=== PATIENT | male | born 1940 | race Caucasian/White ===

== ENCOUNTER 2017-05-20 09:16 | Inpatient (IN) | payer MEDICARE, MEDICAID ==
[~2017-05-20] VITALS: Ht 170.2 cm; Wt 51.7 kg
[~2017-05-20 09:16] MED LIST: ACETAMINOPHEN325 M1; ADULT LOW DOSE81 MG PO; ALBUTEROL NEB IH; ALBUTEROL2.5 MG/3 M INH; ALDACTONE50 MG PO; APAP500 PO; ASPIRIN81 M2 PO; AUGMENTIN 875875 MG PO; BACLOFEN 10MG T10 M1 PO; BACLOFEN 10MG T10 MG PO; CALCIUM 500 +1 EACH PO; CALCIUM 500 WI1 EAC4 PO; CARAFATE 1 GM TA1 G1 PO; CEFUROXIME500 MG PO; COMBIVENT IH; CONSTULOSE10 GM/152 PO; DUONEB 2.5-0.5 M3 ML INH; FLAGYL500 MG PO; FUROSEMIDE 20 M20 M1 PO; LACTULOSE20 GM/30 M PO; LASIX 40 MG TAB40 M2 PO; LIPITOR10 MG PO; LISINOPRIL5 MG PO; LOMOTIL TABLET1 EACH PO; MIRALAX17 GM PO; MULTIVITAMIN PO; MULTIVITAMINS PO; NEXIUM PO; NEXIUM40 MG PO; NYSTATIN 1100000 U/M SWISH&SPIT; OMEPRAZOLE40 MG PO; PREDNISONE 10 M10 MG PO; PREDNISONE 20 M20 M1 PO; PROTONIX40 M1 PO; SERTRALINE HCL25 M1 PO; SPIRONOLACTONE50 MG PO; TESSALON PERLE100 MG PO; VITAMIN D-3 PO; VITAMIN D1000 UNI1 PO; XIFAXAN550 M1 PO; ZOCOR 10 MG TAB10 MG PO; ZPAK PO
[2017-05-20 09:18] VITALS: BP 142/62
[2017-05-20 10:08] LABS: ABSOLUTE LYMPHOCYTES 0.6 thou/uL (0.8-5.3); ABSOLUTE MONOCYTES 0.4 thou/uL (0.0-1.2); ABSOLUTE NEUTROPHILS 3.2 thou/uL (1.6-8.1); BASOPHILS 0.3 %; EOSINOPHILS 0.8 %; HEMOGLOBIN 9.4 gm/dL (14.0-18.0); LYMPHOCYTES 14.5 %; MCH 31.5 pg (26.0-34.0); MONOCYTES 9.1 %; MPV 9.4 fl. (7.2-11.1); NUCLEATED RBCS 0 /100WBC; POLYS 75.3 %; RDW-CV 15.3 % (10.5-14.5); WBC 4.2 thou/uL (4.0-11.0)
[2017-05-20 10:09] LABS: PLATELET COUNT* 46 thou/uL (150-400)
[2017-05-20 10:16] LABS: INR 1.3; PROTIME 12.3 Seconds (9.20-11.50)
[2017-05-20 10:17] LABS: ANION GAP 7 mmol/L (7-16); BUN 24 mg/dL (7-18); CALCIUM 8.3 mg/dL (8.5-10.1); CHLORIDE 108 mmol/L (98-107); CO2 25 mmol/L (21-32); CREATININE 1.7 mg/dL (0.6-1.3); GLUCOSE 100 mg/dL (70-99); POTASSIUM 4.1 mmol/L (3.5-5.1); SODIUM 140 mmol/L (136-145)
[2017-05-20 10:27] LABS: ALBUMIN 2.5 g/dL (3.4-5.0); ALKALINE PHOSPHATASE 163 U/L (46-116); AMMONIA 83 umol/L (11-32); LIPASE 414 U/L (73-393); NT-PRO BRAIN NAT PEPTIDE 356 pg/mL (<300); SGOT 42 U/L (15-37); SGPT 35 U/L (30-65); TOTAL BILIRUBIN 0.9 mg/dL (<0.1-1.0); TOTAL PROTEIN 7.6 g/dL (6.4-8.2); TROPONIN-I LEVEL <0.06 ng/mL (<0.06)
[2017-05-20 10:39] LABS: PCO2 29.2 mmHg (35.0-45.0); pH 7.454 (7.340-7.450)
[2017-05-20 11:19] LABS: URINE BILIRUBIN NEGATIVE (Negative); URINE BLOOD 3+ (Negative); URINE CLARITY CLEAR; URINE COLOR YELLOW; URINE GLUCOSE-RANDOM NEGATIVE (Negative); URINE KETONES NEGATIVE (Negative); URINE LEUKOCYTES-REFLEX NEGATIVE (Negative); URINE NITRITE-REFLEX NEGATIVE (Negative); URINE PROTEIN 1+ (Negative); URINE SPECIFIC GRAVITY 1.015 (1.005-1.030); URINE UROBILINOGEN 0.2 E.U./dl (0.2-1.0)
[2017-05-20 11:28] LABS: BACTERIA-REFLEX 1-9 Few /HPF (None Seen); CASTS None Seen /LPF (None Seen); CRYSTALS None Seen /LPF (None Seen); MUCUS 0-3 Light strn/LPF (None Seen); SQUAMOUS 0-3 Few /LPF (0-3); URINE WBC-REFLEX 0-5 Rare /HPF (0-5)
[2017-05-20 11:47] LABS: PO2 125.6 mmHg (75.0-100.0)
[2017-05-20 12:19] LABS: INFLUENZA A ANTIGEN None Detected (None Detect); INFLUENZA B ANTIGEN None Detected (None Detect)
[2017-05-20 14:40] VITALS: BP 120/61
--- NOTE | 2017-05-20 14:41 | NUR ---
TALKED TO ALVARO, [facility]ING [employer] DELIVERY CLERK FOR PT'S CASE, . SHE GAVE SOME INSIGHT ON THE LAST FEW DAYS AT HOME WITH PT'S CONDITION AND INTERACTIONS BETWEEN PT'S , PT'S DR OFFICE, AND THE [facility]. NOTIFIED FLOOR RN OF THIS PHONE CALL.
[2017-05-20 14:50] VITALS: BP 119/64
--- NOTE | 2017-05-20 15:50 | NUR ---
RECEIVED REPORT. PT TRANSFERRED TO ROOM 219 VIA CART. VSS. CARDIAC MONITORING IN PLACE SR-ST. ADMISSION HISTORY COMPLETED BY PT'S . PT IS [id number]. PT'S REPORTS THAT PT IS NORMALLY AWAKE AND ALERT BUT HAS HAD A HX OF STROKE AND HAS SLURRED SPEECH AND PROBLEMS SWALLOWING AND IS ON A MECH. ALT. GROUND DIET WITH NECTAR THICK LIQUIDS AND PILLS WITH APPLESAUCE. PT'S SPOUSE ASSIST PT WITH BATHING, TRANSFERRING, AND EATING. PT WEARS 2L AT HOME AT HS. PT CURRENTLY ON 2L PER NC WITH O2 SAT AT 97%. PT'S SPOUSE REPORTS PT HAS RECENTLY HAD DECREASED LOC, HAS HAD MORE ISSUES WITH SWALLOWING, AND HAS HAD ISSUES WITH INCONTINENCE WITH URINE THE PAST COUPLE DAYS WHICH IS WHY SHE THINKS HE HAS A UTI. PRESSURE ULCER NOTED TO PT'S BUTTOCK, PICTURE TAKEN. 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 PT'S SPOUSE REPORTS PT GETS UP WITH MODERATE ASSISTANCE. ADMISSION ASSESSMENT COMPLETED CHARTED. IVF INFUSING PER ORDERS. PT IN NO APPARENT PAIN. FALL PERCATIONS IN PLACE. CALL LIGHT IS WITHIN REACH. MED REC. COMPLETED. WILL CONTINUE TO [facility].
--- NOTE | 2017-05-20 18:00 | NUR ---
CARDIAC MOTNIORING WITH NO CHANGES NOTED. PT REMAINS DROWSY. PT REMAINS ON 2L PER NC. IVF INFUSING PER ORDERS. UNABLE TO COMPLETE SWALLOW EVALUATION DUE TO PATIENT BEING TOO DROWSY AT THIS TIME. PT IN NO APPARENT PAIN. CALL LIGHT IS WITHIN REACH. WILL CONTINUE TO MONITOR FOR DURATION OF SHIFT.
[2017-05-20 20:00] VITALS: BP 115/49
[2017-05-21] VITALS: BP 98/62
[2017-05-21 04:00] VITALS: BP 120/56
[2017-05-21 05:27] LABS: HEMATOCRIT 26.1 % (42.0-52.0); HEMOGLOBIN 9.1 gm/dL (14.0-18.0); MCH 31.3 pg (26.0-34.0); MCHC 34.8 g/dL (28.0-37.0); MPV 9.9 fl. (7.2-11.1); RBC 2.9 mil/uL (4.50-6.00); RDW-CV 15.1 % (10.5-14.5); WBC 8.2 thou/uL (4.0-11.0)
[2017-05-21 05:48] LABS: ALBUMIN 2.4 g/dL (3.4-5.0); CALCIUM 8.3 mg/dL (8.5-10.1); CREATININE 1.6 mg/dL (0.6-1.3); POTASSIUM 4.7 mmol/L (3.5-5.1); TOTAL BILIRUBIN 2.5 mg/dL (<0.1-1.0)
--- NOTE | 2017-05-21 05:51 | NUR ---
ASSUMED PATIENT CARE AT 1900. PATIENT SEDATED AT TIME OF MATTRESS FILLING MACHINE TENDER. REPORTED FROM PREVIOUS SHIFT THAT HE WAS FOR THAT RN ALSO. SPOUSE AT BEDSIDE. SPOUSE IS PRIMARY CAREGIVER AT HOME. REVIEWED WITH SPOUSE PATIENT MEDICATIONS AND STATUS. SPOUSE STATES THAT "IF HE REMAINS GROGGY OR IS NOT FULLY AWAKE, DO NOT TRY TO GIVE HIM MEDICATIONS. HE HAS A HARD TIME WHEN HE IS FULLY AWAKE, HE WILL CHOKE SOMETIMES" PATIENT TAKES MEDS ONE AT A TIME WITH THE BIGGER MEDICATIONS "CHOPPED UP INTO SMALLER PIECES BUT NOT CRUSHED," ACCORDING TO SPOUSE. PATIENT IS PARALYZED ON THE LEFT SIDE FROM A PREVIOUS STROKE. TURNED Q2. HAS SOME CONTRACTURE TO LEFT SIDE ALSO AND WEARS AN ARM BRACE ON THE LEFT SIDE. PATIENT HAS SLURRED SPEECH WHICH IS BARELY AUDIBLE. HEARTRATE HAS BEEN SINUS TACH THROUGH SHIFT. HOURLY ROUNDING AND MATTRESS FILLING MACHINE TENDER COMPLETED DOCUMENTED.
--- NOTE | 2017-05-21 06:17 | EKG ---
[place] [address] ELECTROCARDIOGRAM REPORT Name: SAE LUIS Room: [address] ADM IN M.R.#: [id number] Admission: 05/20/17 Attend Phys: Josephine Little MD Discharge: Date of : 44 Report #: [id number] THIS REPORT FOR: //name// [facility] ED Test Date: 2017-05-20 Test Time: 09:19:08 Pat Name: SAE LUIS Department: Room: [facility] Gender: M Organisation And Methods Analyst: Neyda BUNN : 1940 Requested By: Michel Mas Order Number: [id number] MD: Erick Victor Measurements Intervals Starbuck Rate: 89 P: 31 MA: 134 QRS: 3 QRSD: 90 T: 33 QT: 391 QTc: 476 Interpretive Statements Sinus rhythm Compared to ECG 09/11/2016 16:32:14 Left ventricular hypertrophy no longer present Electronically Signed On 05-21-2017 6:17:50 NICK SETTER by Erick Victor [email or web address] <ELECTRONICALLY SIGNED> By: Erick Victor MD, [facility] 05/21/17 0617 8 8 Erick Vitcor MD, [facility] /EPI
[2017-05-21 06:19] LABS: BE -4.4 mmol/L (-2 to +3); HCO3 19.6 mmol/L (22.0-26.0); PCO2 31.8 mmHg (35.0-45.0); PO2 113.6 mmHg (75.0-100.0); pH 7.408 (7.340-7.450)
[2017-05-21 09:00] VITALS: BP 125/66
--- NOTE | 2017-05-21 10:29 | NUR ---
VSS, ASSUMED CARE IN THE AM, PT FOUND IN BED, WITH GOWN AND SHEETS OFF, PT IS CONFUSED, IMPULSIVE AND HAS ALL FOUR BED RAILS UP, PT IS ON 2L NC BUT TAKES OFF, PT IS TRACING ST ON THE MONITOR BUT TAKES OFF LEADS, PT IS UP WITH MAX ASSIST, PT GOAL IS TO IMPROVE BREATHING AND MENTATION, WILL FOLOW WITH PLAN OF CARE.
[2017-05-21 11:29] VITALS: BP 104/59
--- NOTE | 2017-05-21 13:00 | 2DMMODE ---
[place] [address] 2 D/M-MODE ECHOCARDIOGRAM Name: SAE LUIS Room: [address] IN [facility]#: [id number] Admission: 05/20/17 Attend Phys: Josephine Little, Discharge: Date of : 44 Date of Service: 05/21/17 [facility] Report #: [id number] THIS REPORT FOR: //name// APPROVED REPORT Study performed: 05/21/2017 10:52:17 EXAM: Comprehensive 2D, Doppler, and color-flow Echocardiogram Patient Location: In-Patient Room #: 219 Status: routine BSA: 1.64 HR: 107 bpm BP: 120/56 mmHg Other Information Study Quality: Good Technically limited study due to uncooperative patient. Indications Elevated Troponin 2D Dimensions LVEF(%): 79.76 (>50%) IVSd: 11.41 (7-11mm) LVOT Diam: 20.07 (18-24mm) LVDd: 45.55 mm PWd: 8.62 (7-11mm) Ascending Ao: 29.89 (22-36mm) LVDs: 23.57 (25-40mm) Aortic Root: 31.75 mm Bloom's LVEF: 79.76 % Volumes Left Atrial Volume (Systole) LA ESV Index: 18.20 mL/m2 Aortic Valve AoV Peak Devante.: 1.16 m/s AO Peak Gr.: 5.39 mmHg LVOT Max P.92 mmHg AO Mean Gr.: 2.76 mmHg LVOT Mean P.02 mmHg LVOT Max V: 0.99 m/s AO V2 VTI: 22.02 cm LVOT Mean V: 0.66 m/s ROCIO (VTI): 2.69 cm2 LVOT V1 VTI: 18.76 [place] [address] 2 D/M-MODE ECHOCARDIOGRAM Name: SAE LUIS Room: [address] IN .R.#: [id number] Admission: 05/20/17 Attend Phys: Josephine Little, Discharge: Date of : 44 Date of Service: 05/21/17 [facility] Report #: [id number] E/A Ratio: 0.86 MV Decel. Time: 105.67 ms MV E Max Devante.: 0.94 m/s MV PHT: 30.64 ms MVA (PHT): 7.18 cm2 TDI E/Lateral E': 4.95 E/Medial E': 4.95 Medial E' Devante.: 0.19 m/s Lateral E' Devante.: 0.19 m/s Pulmonary Valve PV Peak Devante.: 1.29 m/s PV Peak Gr.: 6.65 mmHg Tricuspid Valve TR Peak Gr.: 27.36 mmHg RVSP: 32.36 mmHg Left Ventricle The left ventricle is normal size. There is normal LV segmental wall motion. There is normal left ventricular wall thickness. Left ventricular systolic function is normal. The left ventricular ejection fraction is within the normal range. LVEF is 65-70%. Grade I - abnormal relaxation pattern. Right Ventricle The right ventricle is normal size. The right ventricular systolic function is normal. Atria The left atrium size is normal. The right atrium size is normal. Aortic Valve The aortic valve is normal in structure. No aortic regurgitation is present. There is no aortic valvular stenosis. Mitral Valve Mild mitral annular calcification. Mild mitral regurgitation. No evidence of mitral valve stenosis. Tricuspid Valve The tricuspid valve is normal in structure. Mild tricuspid regurgitation. The RVSP is _32.4 mmHg. Pulmonic Valve The pulmonary valve is normal in structure. [place] [address] 2 D/M-MODE ECHOCARDIOGRAM Name: SAE LUIS Room: [address] IN [facility]#: [id number] Admission: 05/20/17 Attend Phys: Josephine Little, Discharge: Date of : 44 Date of Service: 05/21/17 [facility] Report #: [id number] valvular regurgitation. Great Vessels The aortic root is normal in size. IVC is normal in size and collapses with >50% inspiration Pericardium There is no pericardial effusion. <Conclusion> The left ventricle is normal size. There is normal left ventricular wall thickness. Left ventricular systolic function is normal. The left ventricular ejection fraction is within the normal range. LVEF is 65-70%. Grade I - abnormal relaxation pattern. The right ventricle is normal size. The left atrium size is normal. The aortic valve is normal in structure. Mild mitral annular calcification. Mild mitral regurgitation. The tricuspid valve is normal in structure. Mild tricuspid regurgitation. The RVSP is _32.4 mmHg. IVC is normal in size and collapses with >50% inspiration There is no pericardial effusion. There is normal LV segmental wall motion. <ELECTRONICALLY SIGNED> By: Iker Hawkins MD, FACC 05/21/17 1300 1300 1300 Iker Hawkins MD, FACC /INF
--- NOTE | 2017-05-21 13:48 | NUR ---
WOUND CARE NOTE: ASSESSMENT FOR PRESSURE ULCER TO LEFT BUTTOCK. PATIENT PRESENTS WITH A HEALING STAGE 4 PRESSURE ULCER TO HIS COCCYX. PATIENT'S FAMILY MEMBER IN ROOM STATES IT USED TO BE TO BONE. AREA WITH NEW PURPLE EPITHELIUM, HOWEVER IT IS STILL OPEN. MACERATION PRESENT. PURPLE AREA IS APPROXIMATELY 4X1.5X0.2. BARRIER OINTMENT HAD BEEN PLACED BY NURSING STAFF. PATIENT ALSO HAS A PARTIAL THICKNESS WOUND, BELIEVE TO BE AN ABRASION, TO HIS LEFT BUTTOCK. RAISED, RED LESION WITH MULTIPLE SMALL AREAS OF PARTIAL THICKNESS OPENINGS. RED, DRY. BARRIER OINTMENT HAD BEEN PLACED BY NURSING STAFF. EDUCATED FAMILY MEMBER IN ROOM ON FINDINGS. SHE STATES HE DOES HAVE A CUSHION AT HOME FOR HIS WHEELCHAIR. EDUCATED FAMILY MEMBER ON USING BARRIER OINTMENT AT THIS TIME, COMMUNICATED UNDERSTANDING. ALL AREAS APPEAR HEALING AND WITHOUT S/S OF INFECTION. PATIENT IS VERY RESTLESS AT THIS TIME, REMOVING GOWN AND BLANKETS. RECOMMEND LIMIT HOB <30 DEGREES LIMIT LAYERS OF LINEN UNDER PATIENT THIN LAYER OF BARRIER OINTMENT BID AND PRN INCONTINENCE TURN Q 2 HOURS-KEEP OFF WOUNDS ENCOURAGE GOOD NUTRITION AND HYDRATION
--- NOTE | 2017-05-21 14:02 | NUR ---
CM ASSESSMENT: Spoke with Pt's in room, states that Pt is extremely confused right now. states that this is not normal behavior for the Pt. Pt normally resides at home with his . assists with all of Pt's care. Pt normally is able to ambulate with a cane and gait belt. Pt also has a walker and wc at home that he can use. Hx of VNA. Pt has an inhome intensive care ambulance paramedic that comes a couple times/week from [facility] [phone]. Hx of SNF. Pt has home o2 that he wears at night and when he lays down, provided through [employer]. is unsure what Pt will need at dc at this time, d/t his confusion. Following.
[2017-05-21 15:37] VITALS: BP 135/53
--- NOTE | 2017-05-21 18:19 | NUR ---
vss, PT IS CONFUSED AND HAS HAD ONE STOOL, IN BED PT IS INCONT OF B/B AND BED REST Q2 TURN, PT IS ON 2L NC AND TRACING ST ON THE MONITOR, PT IS IMPULSIVE AND PULLS OFF GOWN AND LEADS AND IV AND SHEETS, PT IS A FEEDER AND IS HARD TO WAKE, PT IS NO PROGRESSING AT THIS TIME, PT GOAL IS SAFETY, HOURLY ROUNDS COMPLETED.
[2017-05-21 21:00] VITALS: BP 159/68
[2017-05-22] VITALS: BP 105/66
[2017-05-22 04:00] VITALS: BP 156/68
[2017-05-22 05:20] LABS: HEMATOCRIT 27.6 % (42.0-52.0); HEMOGLOBIN 9.6 gm/dL (14.0-18.0); MCH 31.6 pg (26.0-34.0); MCHC 34.9 g/dL (28.0-37.0); MCV 90.6 fL (80.0-100.0); MPV 9.5 fl. (7.2-11.1); RBC 3.04 mil/uL (4.50-6.00); RDW-CV 15.4 % (10.5-14.5); WBC 11.3 thou/uL (4.0-11.0)
[2017-05-22 05:50] LABS: ALBUMIN 2.6 g/dL (3.4-5.0); CALCIUM 8.7 mg/dL (8.5-10.1); MAGNESIUM 2.5 mg/dL (1.8-2.4); POTASSIUM 4.6 mmol/L (3.5-5.1); TOTAL BILIRUBIN 2.5 mg/dL (<0.1-1.0); TOTAL PROTEIN 7.4 g/dL (6.4-8.2)
[2017-05-22 08:00] VITALS: BP 157/68
--- NOTE | 2017-05-22 08:00 | NUR ---
AM ASSESSMENT COMPLETE, DEFER TO COMPUTER CHARTING. DENTAL SERVICE CHIEF TRACKING ST. DROWSY, NON-VERBAL. CONFUSED, IMPULSIVE. INCONTINENT OF URINE, PERICARE GIVEN, PLACED IN GOWN. IV INFUSING, BED ALARM ON FOR SAFETY.
--- NOTE | 2017-05-22 09:00 | NUR ---
PT ALERT, NON-VERBAL, WILL MOAN WHEN ASKED QUESTIONS, ST ON THE MONITOR, 2L NC, REMOVED O2 FREQUENTLY, MEDS/ASSESSMENT PER CHARTING, PT REFUSED MEDS FREQUENTLY, WOULD SPIT OUT MED/THICKENED LIQUID, HOURLY ROUNDING IN PLACE, FALL PRECAUTIONS IN PLACE, PT WOULD LAY LEGS OVER THE RAILINGS OF THE BED FREQUENTLY, LEFT SIDE WEAKNESS WITH LEFT HAND CONTRACTION, PT NON-COOPERATIVE WITH Q2T HE WILL NOT REMAIN IN THE POSITION, HE IS CONT MOVING HIMSELF AROUND, BARRIER CREAM USED WITH EACH-FREQUENT URINE/BOWEL EPISODS OF LOOSE STOOLS, AM SEPSIS SCREENING POSTIVE, NOTIFED MD VIA U-CALL WITH NO RETURN CALL THUS FAR, DAY RN NOTIFED, PT WAS NON-COOPEARTIVE FOR STAT CT-SPINE, WAS INFORMED WHEN THEY RETURNED THEY WILL TRY AGAIN IN THE MORNING, REPORT GIVEN TO DAY RN.
[2017-05-22 11:55] VITALS: BP 144/72
--- NOTE | 2017-05-22 15:55 | NUR ---
REGIONAL MARKETING MANAGER TRACKING WITH NO CHANGE IN RHYTHM. CONTINUES TO BE CONFUSED AND NON-VERBAL, PULLING AT CLOTHING, TAKING GOWN OFF. GIVEN IV MEDS PER ORDERS EARLIER AND PATIENT CT ABLE TO BE COMPLETED. PATIENT HAVING PERIODS OF BEING RELAXED ON AND OFF POST PROCEDURE. IV INFUSING PER ORDERS. INCONTINENT DERRICK CARE GIVEN. HOB REMAINS ELEVATED, 02 ON 2L PER NC. IN VISITING, REVIEWED PLAN OF CARE, DOCTORS ORDERS - REASSURANCE GIVEN. WILL CONTINUE WITH PLAN OF CARE.
[2017-05-22 19:03] VITALS: BP 126/61
[2017-05-22 20:00] VITALS: BP 120/56
--- NOTE | 2017-05-22 20:00 | NUR ---
RECEIVED REPORT AND ASSUMED CARE OF PT, ASSESSMENT COMPLETED. PT LETHARGIC DUE TO PREVIOUS MEDS GIVEN FOR TEST. AT BEDSIDE. MULTIPLE AREAS OF BLOOD BLEEDING UNDER THE SKIN NOTED. BRACE TO LT HAND DUE TO CONTRACTURE. O2 ON AT 2L/NC, NO SOB NOTED. INCONT OF LIQ STOOL, BUTTOCKS RED WITHOUT BREAKDOWN. TELEMETRY ON SHOWING SR. WILL CONT TO MONITOR AND ASSIST NEEDED.
[2017-05-23] VITALS: BP 117/50
[2017-05-23 04:00] VITALS: BP 112/62
--- NOTE | 2017-05-23 07:09 | NUR ---
RESTLESS AND MOVING ABOUT BED ALL NIGHT. NO FURTHER STOOLS TONIGHT. HELD LACTOSE ENEMA DUE TO LAB RESULT OF AMMONIA OF 22. TELEMETRY ON SHOWING SR. PT SLOWLY ADVANCING TOWARDS GOALS. HOURLY ROUNDING OBSERVED. REPOSITIONED Q 2HR.
[2017-05-23 07:45] VITALS: BP 138/81
[2017-05-23 12:00] VITALS: BP 142/73
--- NOTE | 2017-05-23 13:14 | NUR ---
RECEIVED PT CARE 0700. PT IS AWAKE, CONFUSED. 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 VSS. MACHINE INKER TRACING SR. ATTEMPTED ULTRASOUND THIS AM BUT PATIENT WAS NOT COOPERATIVE. PRN ATIVAN GIVEN AND EEG IS CURRENTLY BEING DONE AT BEDSIDE. PATIENT MORE CALM AND LESS RESTLESS. AM ASSESSMENT CHARTED. MEDS PER MAR. INCONTINENT OF URINE, NO BOWEL MOVEMENT NOTED OF YET THIS SHIFT. AMONIA LEVELS IMPROVED. BED ALARM ON. CALL LIGHT WITHIN REACH. PROCAL GTT INFUSING WITH MULTIVITAMIN IVF. CALL LIGHT WITHIN REACH. WILL MONITOR FREQUENTLY.
--- NOTE | 2017-05-23 16:07 | NUR ---
LIDIA Tru[place]illo liaison, came to speak with CM regarding concerns that they have with Pt being at home. Pt's home nurse believes that Pt's may be witholding Pt's Lactulose to cut down on Pt's BMs. Hotline has been placed. Pt will likely need skilled at dc. Following.
[2017-05-23 16:44] VITALS: BP 133/60
--- NOTE | 2017-05-23 18:20 | NUR ---
PT PROGRESSING TOWARDS GOALS. US ABDOMEN COMPLETED THIS AFTERNOON AFTER PRN ATIVAN GIVEN. NEW IV STARTED IN RIGHT UPPER ARM. PROCAL GTT INFUSING WITH VITAMIN IVF. PATIENT REPOSITIONED FOR COMFORT BUT WILL MOVE HIM SELF IN BED BACK TO WHERE HE WANTS TO LAY. LACTULOSE ENEMA GIVEN X1 THIS AFTERNOON. LARGE LIQUID BOWEL MOVEMENT NOTED. NEW SKIN TEARS NOTED TO PATIENTS RIGHT ARM WHERE TAP WAS REMOVED FOR LAB DRAWS. 2 PICTURES TAKEN AND PLACED ON CHART. VASELINE GAUZE APPLIED AND ROLLED GAUZE. POOR APPETITE THIS SHIFT. HOURLY ROUNDING CHARTED. BED ALARM ON. CALL LIGHT WITHIN REACH. WILL MONITOR FREQUENTLY.
[2017-05-23 20:00] VITALS: BP 145/65
--- NOTE | 2017-05-23 20:00 | NUR ---
RECEIVED REPORT AND ASSUMED CARE OF PT, ASSESSMENT COMPLETED. FAMILY AT BEDSIDE. PT ANSWERING QUESTIONS WITH SHORT ANSWERS. RESTLESS MOVING ABOUT BED. PT INCONT FREQ AND CONSTANTLY TOUCHING PENIS. COCCYX WITH INCREASED REDNESS COMPARED TO PREVIOUS NIGHT. REDNESS NOTED TO LT SHOULDER. REPOSITIONING PT BUT HE IMMEDIATELY MOVES ONTO BACK AND TIPPED TO THE LT. PILLOWS TO BACK TO KEEP PT ONTO HIS RT SIDE BUT REMOVING THEM STATING HE IS HURTING AND DOESN'T LIKE GOING THAT WAY. ATTEMPTED TO EDUCATE BUT NOT EXCEPTING IT. O2 ON PER WIFES REQUEST, NO SOB NOTED. TELEMETRY ON SHOWING SR. WILL CONT TO MONITOR AND ASSIST NEEDED.
[2017-05-24] VITALS: BP 148/42
[2017-05-24 04:00] VITALS: BP 162/49
--- NOTE | 2017-05-24 05:13 | NUR ---
AWAKE ALL NIGHT YELLING OUT AND HANGING LEGS OVER SIDE OF BED. INCONT OF LIQ STOOL DUE TO LACTALOSE. CONSTANTLY ASKING FOR WATER. ABLE TO TAKE NECTAR THICK LIQUIDS WITHOUT COUGHING. HS MEDS CRUSHED AND PUT INTO THICKEN LIQ. ADVANCING TOWARDS GOALS. HOURLY ROUNDING OBSERVED.
[2017-05-24 05:42] LABS: HEMATOCRIT 31.5 % (42.0-52.0); HEMOGLOBIN 10.7 gm/dL (14.0-18.0); MCH 31.5 pg (26.0-34.0); MCV 92.5 fL (80.0-100.0); MPV 9.5 fl. (7.2-11.1); RBC 3.4 mil/uL (4.50-6.00); RDW-CV 15.7 % (10.5-14.5); WBC 10.1 thou/uL (4.0-11.0)
[2017-05-24 06:00] LABS: ALBUMIN 2.4 g/dL (3.4-5.0); CALCIUM 8.8 mg/dL (8.5-10.1); CREATININE 1.5 mg/dL (0.6-1.3); MAGNESIUM 2.5 mg/dL (1.8-2.4); POTASSIUM 4.4 mmol/L (3.5-5.1); TOTAL BILIRUBIN 1.2 mg/dL (<0.1-1.0); TOTAL PROTEIN 7.3 g/dL (6.4-8.2)
[2017-05-24 08:00] VITALS: BP 142/67
--- NOTE | 2017-05-24 09:00 | NUR ---
ASSUMED CARE OF PT AROUND 0730 THIS AM. REFER TO ASSESSMENT. PT CALLING OUT FOR WATER THIS AM. WATER GIVEN, AT BEDSIDE, AND OFFERED FREQUENTLY. TELE SR WITH RATE IN THE 80'S. NO OTHER CONCERNS AT THIS TIME. CLWR. WCTM.
[2017-05-24 14:17] VITALS: BP 135/74
--- NOTE | 2017-05-24 16:38 | NUR ---
PT PROGRESSING TOWARDS GOALS THIS SHIFT. VSS. VANC DOSE TITRATED PER PHARMACY FOR TROUGH RESULTS. IVF INFUSING WITHOUT DIFFICULTY. PT ON RA THIS SHIFT. TELE SR. PT CONTINUES TO YELL OUT FROM ROOM. AT BEDSIDE. PT STARTED ON LIDOCAINE PATCH TO LT NECK/ LT HAND THIS SHIFT FOR PAIN. APPEARS EFFECTIVE. NO OTHER CONCERNS AT THIS TIME. CLWR. WCTM.
[2017-05-24 17:12] VITALS: BP 145/57
[2017-05-24 20:30] VITALS: BP 151/64
[2017-05-25] VITALS (7 sets, daily range): BP systolic 110–136; BP diastolic 37–56
--- NOTE | 2017-05-25 06:54 | NUR ---
TURNED EVERY 2 HOURS. PATIENT FREQUENTLY REPOSITIONING SELF IN BED. SEVERAL SKIN TEARS NOTED ON RIGHT ARM , NEW DRESSINGS APPLIED. IV INFILTRATED ATTEMPTING TO GET NEW IV, NURSING WEED INSPECTOR AWARE. REMAINS ON NECTAR THICKEN LIQUIDS AND MECHANICAL SOFT DIET. VITAL SIGNS STABLE AT THIS TIME. HAD SEVERAL LOOSE STOOLS. BUTTOCK AREA PINK AND BARRIER CREAM APPLIED. BED ALARM ON. CALL LIGHT WITHIN REACH.
--- NOTE | 2017-05-25 08:57 | NUR ---
ASSUMED CARE OF PT AROUND 0730 THIS AM. REFER TO ASSESSMENT. PT HAS NO IV ACCESS THIS AM. PHYSICIAN CONTACTED IN REGARDS TO GOING WITHOUT IV ACCESS OR OBTAINING PICC LINE. NO RETURN PHONE CALL AT THIS TIME. NO OTHER CONCERNS AT THIS TIME. CLWR. WCTM.
--- NOTE | 2017-05-25 14:00 | NUR ---
DISCUSSED PLAN OF CARE WITH AT BEDSIDE AT THIS TIME. STATES THAT WE HAVE NOT DONE ANYTHING FOR HER . THIS NURSE EXPLAINED THE PROCESS OF PT'S DISEASE AND CONDITION. PT'S DISCUSSED PLAN OF CARE WITH NEUROLOGISTS AT THIS TIME. PT TO HAVE MRI DONE TOMORROW. NO OTHER CONCERNS AT THIS TIME. CLWR. WCTM.
--- NOTE | 2017-05-25 17:07 | NUR ---
PT NOT PROGRESSING TOWARDS GOALS THIS SHIFT. UNABLE TO OBTAIN PERIPHERAL IV ACCESS. ORDER PLACED FOR PICC PLACEMENT. DOES NOT CONSENT TO PICC PLACEMENT AT THIS TIME AND WANTS OTHER STAFF TO TRY TO OBTAIN IV. PT/OT/ST CONSULTED THIS SHIFT. ORDER FOR NYSTATIN CREAM TO DERRICK AREA OBTAINED THIS SHIFT. AT BEDSIDE AGITATED. MULTIPLE ATTEMPTS MADE TO CALM AND EDUCATE HER ON PT'S PLAN OF CARE. NO OTHER CONCERNS AT THIS TIME. CLWR. WCTM.
[2017-05-25 19:08] LABS: HEMATOCRIT 25.2 % (42.0-52.0); HEMOGLOBIN 8.7 gm/dL (14.0-18.0); MCH 31.7 pg (26.0-34.0); MCHC 34.3 g/dL (28.0-37.0); MCV 92.3 fL (80.0-100.0); MPV 9.3 fl. (7.2-11.1); RBC 2.73 mil/uL (4.50-6.00); RDW-CV 15.6 % (10.5-14.5); WBC 5.5 thou/uL (4.0-11.0)
[2017-05-25 19:22] LABS: INR 1.3; PROTIME 12.7 Seconds (9.20-11.50)
[2017-05-25 19:24] LABS: CALCIUM 8.8 mg/dL (8.5-10.1); CREATININE 1.5 mg/dL (0.6-1.3); MAGNESIUM 2.3 mg/dL (1.8-2.4); POTASSIUM 3.9 mmol/L (3.5-5.1)
--- NOTE | 2017-05-25 19:49 | NUR ---
CONSULTED TO PLACE PICC PER ORDER. CONSENT OBTAINED BY PRIMARY NURSE. PT EXPLAINED RISK WELL BENEFIT OF PICC INSERTION TO INCLUDE RISK OF DVT AND RISK OF INFECTION. PT ASSESSED WITH ULTRASOUND AND ROB BASILIC FOUND TO BE WIDELY PATENT. LINE TRIMMED TO 45 CM AND PLACED PER FACILITY POLICY WITH 4 CM EXTERNAL. LINE POSITION CONFIRMED WITH 3CG AND RELEASED FOR IMMEDIATE USE. NO ACUTE DISTRESS NOTED, PT TOLERATED PROCEDURE WELL.
--- NOTE | 2017-05-26 00:18 | NUR ---
BEGAN CARE OF PT AT 1915, AT BEDSIDE, DAY RN REPORTED SHE REC A CRITICAL PLT OF 39 AND IT WAS NOT CALLED OUT PT'S HAD CRITICAL PLT'S SINCE ARRIVAL WITH NO REPLACEMENT NEEDED, NOTE REVIEWED REGARDING DR SHABAZZ DISCUSSION WITH PT'S AND HIS PLT ISSUE BEING OLD, PT WILL OPEN HIS EYES WHEN ASKED TO, ABLE TO GIVE ME HIS NAME, , AND REPORT HE IS IN THE HOSPITAL, BUT DOES NOT KNOW WHY. SR ON THE MONITOR, 2L NC, Q2T IN PLACE, DRESSING CHANGE TO R-ARM SKIN TEARS COMPLETED WITH PICTURES TAKEN WELL OF BOTTOM, MEDS/ASSESSMENT PER CHARTING, HOURLY ROUNDING/FALL PRECAUTIONS IN PLACE, VSS, REPORTED SHE DOES NOT WANT THE LACTULOSE GIVEN BECAUSE HIS AMMONIA LEVELS ARE DOWN NOW AND WE ARE GIVING THEM TO MUCH OF IT, AFTER DISCUSSING WITH PT'S WE WILL HOLD THE EVENING DOSE, WILL CONT TO MONITOR.
[2017-05-26 04:00] VITALS: BP 97/35
[2017-05-26 05:24] LABS: HEMATOCRIT 24.2 % (42.0-52.0); HEMOGLOBIN 8.4 gm/dL (14.0-18.0); MCHC 34.7 g/dL (28.0-37.0); MCV 92.3 fL (80.0-100.0); MPV 9.5 fl. (7.2-11.1); RBC 2.62 mil/uL (4.50-6.00); RDW-CV 15.1 % (10.5-14.5); WBC 5.1 thou/uL (4.0-11.0)
[2017-05-26 05:56] LABS: CALCIUM 8.7 mg/dL (8.5-10.1); CREATININE 1.4 mg/dL (0.6-1.3); MAGNESIUM 2.2 mg/dL (1.8-2.4); POTASSIUM 4.4 mmol/L (3.5-5.1)
[2017-05-26 08:25] VITALS: BP 98/36
[2017-05-26 09:37] LABS: URINE BILIRUBIN NEGATIVE (Negative); URINE BLOOD 3+ (Negative); URINE CLARITY CLEAR; URINE COLOR YELLOW; URINE GLUCOSE-RANDOM NEGATIVE (Negative); URINE KETONES NEGATIVE (Negative); URINE LEUKOCYTES-REFLEX NEGATIVE (Negative); URINE NITRITE-REFLEX NEGATIVE (Negative); URINE PROTEIN NEGATIVE (Negative); URINE UROBILINOGEN 0.2 E.U./dl (0.2-1.0)
[2017-05-26 09:46] LABS: SQUAMOUS NONE SEEN /LPF (0-3); URINE RBC 3-10 Few /HPF (0-2)
[2017-05-26 09:47] LABS: BACTERIA-REFLEX 1-9 Few /HPF (None Seen); CASTS None Seen /LPF (None Seen); CRYSTALS None Seen /LPF (None Seen); URINE WBC-REFLEX None Seen /HPF (0-5); YEAST-REFLEX Present (None Seen)
--- NOTE | 2017-05-26 11:34 | NUR ---
ASSUMED PT CARE 0730. PT ALERT TO PERSON, PLACE AND YEAR. PT MUBLING, HOWEVER TALKATIVE. PT C/O OF LOWER BAKC PAIN, LIDOCAINE PATCH APPLIED. PT C/O OF LEFT HAND PAIN. DR HERNANDEZ AND ASKED FOR TYLENOL, AWAITING ORDERS. PILLS GIVEN CRUSED IN PUDDING. PT IS A FEEDER FOR MEALS. MAJOR ACCOUNT MANAGER FED PT BREAKFAST AND REPORTS PT EATING 100% OF OATMEAL AND 240ML OF FLUIDS. PT IS REQUESTING FLUIDS. PT ON NECTAR THICKEND FLUIDS. PT TURNED TO SIDE. URINE SAMPLE COLLECTED AND SENT TO LAB. CALLED FOR MRI QUESTIONARE. PT TO HAVE MRI AT 1240. PT REPORTS HE FEELS HE CAN LAY STILL FOR MRI. PT FOLLOW DIRECTIONS THIS AM. WILL CONTINUE PLAN OF CARE.
[2017-05-26 12:09] VITALS: BP 82/57
[2017-05-26 12:55] LABS: ALBUMIN 1.8 g/dL (3.4-5.0); DIRECT BILIRUBIN 0.2 mg/dL (<0.1-0.3); TOTAL BILIRUBIN 0.5 mg/dL (<0.1-1.0); TOTAL PROTEIN 5.8 g/dL (6.4-8.2)
[2017-05-26 17:12] VITALS: BP 95/29
--- NOTE | 2017-05-26 17:49 | NUR ---
PT HAD 4 STOOLS THIS SHIFT. PT BEING FED MEALS. PT TO HAVE SWALLOW EVAL PER ST 05/27/16. PT C/O OF LEFT ARM PAIN. DR NOTIFIED AND TYLENOL ADMININSTERED PER JUN.
[2017-05-26 20:30] VITALS: BP 114/36
[2017-05-27 04:42] VITALS: BP 117/38
--- NOTE | 2017-05-27 05:46 | NUR ---
PT A/O TO SELF, LOCATION, AND MONTH, 2 L NC, NO LONGER ON TELE MONITOR, PT REFUSED Q2T THROUGHOUT THE WHOLE NIGHT, EDUCATED PT ON REDNESS TO THE BOTTOM/GROIN AND HE CONT TO REFUSE TO TURN, VSS, MEDS/ASSESSMENT PER CHARTING, PICC LINE WAS DISLODGED AT SOME POINT IN THE NIGHT WITH THE PICC LINE NOT FULLLY OUT, HAND FILER BALANCE WHEEL AND DONOVAN SUPP ASSESSED PICC LINE AND BOTH STATED IT MAY BE REMOVED BYT THIS RN, NEW IV PLACED BY HOUSE SUP TO THE RIGHT UPPER SHOULDER WHICH, PT DRINKING WELL WITH PRE-THICKENED NECTAR LIQUIDS, AT THE START OF MY SHIFT PT WAS SPEAKING WITH A LOUD FIRM VOICE STATING SHE REFUSED THE PICC LINE AND DOESN'T KNOW WHY THEY HAD TO DO ONE, SHE STATED HE IS NOT EATING LIKE HE SHOULD BE AND DOESN'T KNOW WHY THAT'S NOT BEING ADDRESSED, SHE STATED THE PEOPLE IN THIS HOSPITAL DON'T KNOW HOW TO THICKEN HIS LIQUIDS WITH THE THICKENING POWDER IN HIS ROOM SO SHE HAS BEEN DOING IT, PT HAD C/O BACK PAIN WHICH WAS TREATED X1 WITH TYLENOL AND PT REPORTED NO MORE PAIN THROUGHOUT THE REST OF THE NIGHT, PICC LINE TO BE REMOVED AT THIS TIME, PT HAD MULTIPLE LOOSE STOOLS OVER NIGHT, REFUSED HIS LACTULOSE THIS AM, WHEN PT LAID FLAT FOR CLEANING PT BECOMES VERY SOA, COUGHING, HOB RAISED TO ASSIST WITH SOA, PT ALSO STATED AT THE START OF THIS SHIFT SHE WANTS ANOTHER CHEST XRAY DONE BECUASE THE PT TRIES TO SNEEZE IT CAUSES HIM SOA AND PAIN, EDUCATED PT I WILL BE SURE TO HAVE HER CONCERNS SHARED WITH THE DAY RN AND ENCOURAGED HER TO ALSO SHARE HER CONCENS/REQUEST WITH THE DAY RN AND DOCTOR, WILL CONT TO MONITOR.
[2017-05-27 07:47] VITALS: BP 103/33
--- NOTE | 2017-05-27 13:55 | NUR ---
PT SITTING IN CHAIR THIS AFTERNOON PER PT. PT MAX ASSIST. REPORTS PT USES BRACE ON LEG TO GET UP AND THAT IT IS IN PT'S ROOM. PT REPORTS AT HOME HE TRANSFERS FROM BED TO WHEELCHAIR. PT INCONTINENT OF URINE. PT ABLE TO FEED SELF IN CHAIR.
--- NOTE | 2017-05-27 14:35 | NUR ---
PATIENT TRANSFERRED TO [place] [id number] FROM [facility]. REPORT RECEIVED FROM SAMANTHA ACE. PATIENT TURNED ON LEFT SIDE, PREVIOUSLY SITTING IN THE CHAIR WHILE ON 2 EAST. PATIENT TO HAVE SWALLOW STUDY THIS AFTERNOON AT 1500. DRESSINGS TO RIGHT ARM CHANGED AND MEPILEX PLACED. AGREE WITH AM ASSESSMENT. BED ALARM IN PLACE. CALL LIGHT WITHIN REACH, WILL CONTINUE TO MONITOR.
--- NOTE | 2017-05-27 15:47 | CON ---
[address] [address] CONSULTATION Name: SAE LUIS Room: [address] IN M.R.#: [id number] Admission: 05/20/17 Attend Phys: Josephine Little MD Discharge: Date of : 44 Report #: [id number] THIS REPORT FOR: //name// CC: Iker Little DATE OF SERVICE: 05/21/2017 ADDENDUM I have personally seen and examined the patient, reviewed labs and imaging studies. The patient with a long history of liver disease and history of CVA, who presents with worsening of mental status. His ammonia level was in 60s range. Reviewing patient's lab, I did not see any evidence of urinary tract infection, upper respiratory infection, ascites, and/or leukocytosis. Liver enzymes are mildly elevated, so is lipase. We will repeat these values tomorrow. The patient also had a CT of the head, which was essentially unchanged from previous studies. We will give the lactulose per rectum and continue monitoring the patient. <ELECTRONICALLY SIGNED> By: Dylan Holt MD 05/27/17 1547 [id number] Holt MD /nt
--- NOTE | 2017-05-27 15:47 | CON ---
[address] [address] CONSULTATION Name: TOBYSAE Jack Room: [address] IN .R.#: [id number] Admission: 05/20/17 Attend Phys: Josephine Little MD Discharge: Date of : 42 Report #: [id number] THIS REPORT FOR: //name// CC: Iker Duran DO Josephine Little DICTATED BY: Randee Crawford [facility] DATE OF SERVICE: 05/21/2017 REASON FOR CONSULTATION: Hepatic encephalopathy. HISTORY OF PRESENT ILLNESS: This is a 76-year-old male who is well known to our practice who was brought to the Emergency Room by EMS after he woke up yesterday morning complaining of shortness of breath and he is on oxygen time buyer. The patient has a longstanding history, he had a CVA back in 1999, history of alcoholic cirrhosis with hepatic encephalopathy that has been noncompliant with taking his lactulose at home per his . It was noted that on May 07, his ammonia level was 130. It was again rechecked on the May 13 and it was 120. Those numbers were as to whether or not he was taking his lactulose as prescribed, which has been a problem in the past and to see what his overall mental status was as well. Since he has been here, he has been very stuporous and inappropriate. He would not keep his clothes on. He tries to climb out of bed and his is not here at his bedside during this. The patient does have a longstanding history of esophageal varices in the past and was scoped last year. He has not had a colonoscopy in many years and his keeps refusing to allow him to have this. Since the last time we saw him, which was last fall, the patient looks significantly more anasarca, significant weight loss and wonder how much he is actually eating at home. ALLERGIES: INCLUDE FOSAMAX, LEVAQUIN, ACTONEL, AUGMENTIN, VICODIN, CEFEPIME, WARFARIN, CLINDAMYCIN. MEDICATIONS: From home include baclofen, albuterol, vitamin D, Lasix, spironolactone, lactulose, omeprazole, Xifaxan, sertraline, multivitamin. PAST MEDICAL HISTORY: Stroke, left-sided paralysis in 2000. He has had a history of blood clots in which he has a Shamrock filter in. He has had all of his teeth surgically removed. He has got alcoholic cirrhosis. PAST SURGICAL HISTORY: Shamrock filter. FAMILY HISTORY: Noncontributory. SOCIAL HISTORY: Longstanding history of alcohol abuse prior to [place] 2000 [place] [address] CONSULTATION Name: SAE LUIS Room: [address] IN [facility]#: [id number] Admission: 05/20/17 Attend Phys: Josephine Little MD Discharge: Date of : 42 Report #: [id number] and has had none since. Denies any tobacco or illegal drug use at this time. REVIEW OF SYSTEMS: Twelve-point review of systems is essentially negative except what is mentioned in the HPI. PHYSICAL EXAMINATION: GENERAL: Overall appearance, he is very emaciated and cachectic looking. VITAL SIGNS: Temperature 36.8, pulse 101, respirations 18, blood pressure 104/59. HEART: Regular rate and rhythm. LUNGS: Diminished, but clear. ABDOMEN: Soft, positive bowel sounds in all 4 quadrants with no masses or tenderness noted. The patient has no evidence of any ascites. NEUROLOGIC: He is disoriented and stuporous. LABORATORY DATA: Hemoglobin 9.1, hematocrit is 26.1, white count is 8.2, platelets is 45. Sodium 145, potassium 4.7, chloride 113, CO2 of 22, BUN is 29, creatinine is 1.6. GFR is 42 and glucose is 78. Ammonia level is 61. Total bilirubin is 2.5, alk phos 203, AST is 81 and AST is 184 and his overall MELD is 17. IMPRESSION: 1. Hepatic encephalopathy. 2. Alcoholic cirrhosis. 3. Hyperammonemia. 4. Shortness of breath. 5. Thrombocytopenia. 6. History of cerebrovascular accident with left-sided paralysis. PLAN: 1. Increase his lactulose to 45 mL t.i.d. 2. Monitor his ammonia and mental status. 3. History of noncompliance at home with and giving him his lactulose has been noted. Thank you for allowing us to participate in this patient's care. Please do not hesitate to call with any questions in regard to this consult. <ELECTRONICALLY SIGNED> By: Dylan Holt MD 05/27/17 1547 [id number] Holt MD /nt
[2017-05-27 16:00] VITALS: BP 125/58
[2017-05-28 00:14] VITALS: BP 127/62
[2017-05-28 00:21] VITALS: BP 127/62
--- NOTE | 2017-05-28 06:35 | NUR ---
PATIENT AWAKE MOST OF THE NIGHT. PT WITH FIVE LOOSE STOOLS; PT INCONTINENT OF BOWEL AND BLADDER. PT WAS ABLE TO VOID 100ML PER URINAL. PT TURNED Q2H PER PROTOCAL. PT ABLE TO SWALLOW PILLS WHOLE WITH WATER. SALINE LOCK IN LT SHOULDER PATENT, PATENT. FREQUENTLY USED ITEMS AND CALL LIGHT WITHIN REACH. SIDERAILS UPX4 AND BED ALARM ON. WILL CONTINUE TO MONITOR.
[2017-05-28 08:00] VITALS: BP 115/49
[2017-05-28] MEDS ORDERED: FERREX 150 PLU1 EAC1 PO (10:50)
[2017-05-28] MEDS ORDERED: LIDOPATCH1 EACH TOP (10:50)
[2017-05-28] MEDS ORDERED: NYSTATIN100000 UNI SW&SWALLOW (10:50)
--- NOTE | 2017-05-28 14:32 | NUR ---
DC ORDERS RECEIVED, PER [facility] PT AND WANT HIM TO GO TO SNF. DIANNA HECTOR MET WITH AND SHE PREFERS PT GO TO [facility]. CALLED AND FAXED REFERRAL TO [facility], AWAIT CALL BACK
--- NOTE | 2017-05-28 15:17 | NUR ---
ASSUMED CARE THIS AM. PATIENT A/O X 3, DENIES DISCOMFORT AT THIS TIME. EXT ASSIST X 1 WITH GAIT BELT FOR TRANSFERS, EXT ASSIST X 1 WITH BED MOBILITY. EXT ASSIST WITH ADL, HISTORY OF CVA WITH LUE CONTRACTED, BRACED, LLE CONTRACTED WITH AFO BRACE. VITAL SIGNS STABLE, ON RA, NO COUGH NOTED. JANENE MECH SOFT WITH NECTAR THICK LIQUIDS, 75% AVG CONSUMED. CONTINENT OF BOWEL, MULTIPLE BM LAST NIGHT DUE TO LACTULOSE THERAPY, REFUSED LACTULOSE TODAY. INCONT OF BLADDER, MOD AMT, YELLOW. RLE WITH RESOLVING ABRASIONS, BRUISING, RUE WITH SKIN TEAR X 2, BRUISING TO BILAT UE WITH VARIOUS STAGES OF HEALING, LAB DRAWS. DERRICK AREA WITH MASD DUE TO INCONTINENCE AND MULTIPLE LIQUID STOOLS. RESOLVING BRUISING NOTED TO LEFT BUTTOCK, NONBLANCHABLE AREA 4 CM X 2 CM TO LEFT ILIOSACRAL BORDER, SKIN INTACT. DISCHARGE PLAN TO POST-ACUTE FOR SKILLED SERVICES TO RETURN TO [facility] FOR RETURN TO HOME, IS PRIMARY CAREGIVER. PHOTOS IN CHART.
--- NOTE | 2017-05-28 16:22 | NUR ---
WITH DISCHARGE ORDERS RECEIVED, PATIENT ACCEPTED TO [facility] FOR SKILLED STAY. UPON TRANSPORTATION CONFIRMATION, NOTIFIED, DECLINED TO AUTHORIZE DISCHARGE, STATING THAT SHE NEEDS TO SPEAK TO DR. VALDEZ WITH NEUROLOGY AND DR. KNIGHT, HOSPITALIST, THAT HE WASN'T READY FOR DISCHARGE. PER DR. KNIGHT, PATIENT STABLE FOR DISCHARGE ON 05/27/17, HELD DUE TO [address] CONDITIONS. PATIENT CLEARED FOR DISCHARGE BY NEUROLOGY PER NOTE, CLEARED BY DR. KNIGHT FOR SKILLED STAY. ATTEMPTED TO CONTACT AT BOTH CELL PHONE NUMBER AND HOME PHONE NUMBER, MESSAGE LEFT TO RETURN CALL, NOT RETURNED OF THIS NOTE.
--- NOTE | 2017-05-28 16:44 | NUR ---
CM SPOKE TO THE PATIENT'S TO INFORM OF [facility] ACCEPTANCE OF THE PATIENT TO SKILLED. PATIENTS VERY UPSET AND YELLING STATES THAT THE PATIENT 'IS NOT READY TO DISCHARGE TODAY, NONE OF THE DR'S TALKED TO ME ABOUT HIM', AND SHE 'WOULD LIKE TO TALK TO DR. KNIGHT AND DR. VALDEZ TO DISCUSS HOW HE IS REALLY DOING'. CM INFORMED NURSING OF THIS INFO. LARRY ALSO CONTACTED MELLO AT [facility] TO INFORM THAT THE PATIENT WOULD REMAIN IN THE HOSPITAL. CM INFORMED THE PATIENT'S THAT SHE HAS THE RIGHT TO APPEAL THE DISCHARGE AND PROVIDED THE MEDICARE DISCHARGE APPEAL INFO. CM WILL REMAIN AVIALABLE TO ASSIST AND FOLLOW NEEDED.
--- NOTE | 2017-05-28 17:50 | NUR ---
PATIENT'S AT BEDSIDE, DOES NOT WANT PATIENT TO DISCHARGE FROM HOSPITAL THIS EVENING DUE TO PENDING ICE STORM, FEELS THAT DISCHARGE TOMORROW IS MORE APPROPRIATE. DISCHARGE PLANNED FOR TRANSPORT IN AM TO [facility] FOR SKILLED PT/OT/ST AND NURSING FOR MEDICAL MANAGEMENT.
[2017-05-29] VITALS: BP 111/52
--- NOTE | 2017-05-29 07:27 | NUR ---
PATIENT SLEPT MOST OF THE NIGHT. IV REMAINS SALINE LOCKED. PATIENT REFUSED LACTULOSE LAST NIGHT. PATIENT HAD NO COMPLAINTS OF PAIN. CALLED LAST NIGHT STATES SHE DOES NOT WANT PATIENT TO GO TO [facility] BUT WANTS TO TAKE HIM BACK HOME. PATIENT IS POSSIBLY GOING HOME TODAY. WILL CONTINUE TO MONITOR.
[2017-05-29 09:15] VITALS: BP 110/49
[2017-05-29 10:48] VITALS: BP 110/49
[2017-05-29 11:43] VITALS: BP 110/49
--- NOTE | 2017-05-29 11:44 | NUR ---
Pt to dc home today with pt and HH follow up services. SW called and spoke with pt who plans to arrive soon and provide pt ride home. Pt/pt preference for [facility] HH services. SW faxed referral and orders to [facility] to resume care.
--- NOTE | 2017-05-29 11:51 | CON ---
[address] [address] CONSULTATION Name: SAE LUIS Room: [address] IN M.R.#: [id number] Admission: 05/20/17 Attend Phys: Josephine Little MD Discharge: Date of : 42 Report #: [id number] THIS REPORT FOR: //name// CC: Iker Little DATE OF SERVICE: 05/23/2017 HISTORY OF PRESENT ILLNESS: This is a 76-year-old male patient who is unable to provide any history. I talked to the patient's . She gives a history that this patient had a stroke in 2000. That left him with paralysis of the left side of the body. He is a total care and the has been taking care of this patient. He started becoming confused around the weekend. Since then, he has progressively become more confused. Multiple tests have been done in this patient. His bilirubin, his SGOT, and his SGPT, they are high. In fact, they have gone up since May 20, when it was first checked. His albumin is low. His platelet is very low at 48. REVIEW OF SYSTEMS: Indicate that he used to drink alcohol, but he has not done it since his stroke. He does have some liver problem, but looks like his problem is worse. He had a stroke on the right side and since then he has been paralyzed on the left side. From all indication, it looks like this patient is a total care and the provides that care. He had a pretty significant shortness of breath and that is the reason he was admitted. This was his relevant 14-point review of systems. PAST MEDICAL HISTORY: Positive for stroke. FAMILY HISTORY: Negative for early age stroke. SOCIAL HISTORY: He has not drank any alcohol since 2000 according to the . PHYSICAL EXAMINATION: The patient's examination is very limited. He is nonverbal. He does not follow any commands. He keeps his eyes shut. He is paralyzed on the left side. He moves the right side. He has no meningeal sign the best I can tell. He does appear to be short of breath. He does not have any edema. He is a thin individual. His cardiac examinations appear mostly noncontributory. His blood pressure is 138/81, respiration is 18, pulse is 93, and temperature is 99.3. His temperature is running about 99. LABORATORY DATA: His labs indicate a white count of 11.3. He did have a CT scan of the head, which appear unremarkable. IMPRESSION: The patient's clinical presentation is consistent with encephalopathy. He was short of breath when he came and he may have had some hypoxia. He has pretty significant hepatic problem, [place] [address] CONSULTATION Name: SAE LUIS Room: [address] IN [facility]#: [id number] Admission: 05/20/17 Attend Phys: Josephine Little MD Discharge: Date of : 42 Report #: [id number] since and that may be contributing to his problem. Central nervous system infection is considered less likely, but is not fully excluded. His platelet count is low and these patients sometimes can have punctate hemorrhage, which are difficult to order picker on CT scan and that can cause altered mental status. RECOMMENDATIONS: 1. I will get an EEG. 2. It is not possible to do the spinal tap in this patient at this moment because his platelet count is very low. 3. I will suggest continue the management and evaluation of his hepatic and respiratory problems and see how he does. 4. After this workup is available, we might talk to the family to see how aggressive they want to be because of what looks like poor quality of the life even in the baseline. Thank you very much for this referral and we will follow this patient along with you. <ELECTRONICALLY SIGNED> By: Shun Alan MD 05/29/17 1151 1047 [id number] Alan MD /nt
--- NOTE | 2017-05-29 11:51 | EEG ---
[address] [address] EEG STUDY REPORT Name: SAE LUIS Room: [address] IN M.R.#: [id number] Admission: 05/20/17 Attend Phys: Josephine Little MD Discharge: Date of : 42 Report #: [id number] THIS REPORT FOR: //name// CC: Iker Little DATE OF SERVICE: 05/23/2017 The patient is being evaluated for altered mental status. EEG was done by placing the electrodes by standard 10/20 system of electrode placement. Both referential and sequential montages were used for recording. Background activity in this patient's EEG is about 7 Hz and 30 microvolts. There is a poorly formed background activity. Photic stimulation is unremarkable. It is difficult to tell when the patient is awake or asleep, but during part of this EEG become slow and that may be drowsiness. IMPRESSION: This is an abnormal EEG. Abnormality is nonspecific and can occur with encephalopathy, effect of psychotropic medication, dementia, etc. Clinical correlation is recommended. Thank you very much for this referral. <ELECTRONICALLY SIGNED> By: Shun Alan MD 05/29/17 1151 1515 [id number] Alan MD /nt
--- NOTE | 2017-05-29 12:41 | NUR ---
PATIENT DISCHARGED TO HOME WITH AT THIS TIME. PATIENT HAD HOME WHEELCHAIR AND CANE. IV DC'D. PHOTOS TAKEN OF BUTTOCKS AND RIGHT ARM SKIN TEARS, DRESSINGS REPLACED TO RIGHT ARM. VERBALIZED UNDERSTANDING OF PAPERWORK AND SCRIPTS. PATIENT TAKEN OUT WITH STAFF IN HOME WHEELCHAIR.
== END 2017-05-29 12:45 | disposition home health service (06) | DRG 441 ==
LOC: M.ERS 09:16 → M.TBA-ER 11:04 → M.2W 11:04 → M.3W 05-27 14:07
PROVIDERS: Emergency Medicine; Family Medicine; Nurse Practitioner Adult Health; ADMIT Internal Medicine
PROC: B54MZZA Ultrasonography of Right Upper Extremity Veins, Guidance (ICD-10-PCS; principal; 2017-05-25)
PROC: 05HB33Z Insertion of Infusion Device into Right Basilic Vein, Percutaneous Approach (ICD-10-PCS; principal; 2017-05-25)
DX: K72.00 Acute and subacute hepatic failure without coma (principal); E43 Unspecified severe protein-calorie malnutrition; J18.9 Pneumonia, unspecified organism; D68.59 Other primary thrombophilia; R65.10 Systemic inflammatory response syndrome (SIRS) of non-infectious origin without acute organ dysfunction; E72.20 Disorder of urea cycle metabolism, unspecified; I85.00 Esophageal varices without bleeding; N39.0 Urinary tract infection, site not specified; D69.6 Thrombocytopenia, unspecified; N18.3 Chronic kidney disease, stage 3 (moderate); D50.9 Iron deficiency anemia, unspecified; K70.31 Alcoholic cirrhosis of liver with ascites; I69.354 Hemiplegia and hemiparesis following cerebral infarction affecting left non-dominant side; Z68.1 Body mass index [BMI] 19.9 or less, adult; Z79.899 Other long term (current) drug therapy; Z88.6 Allergy status to analgesic agent; Z88.1 Allergy status to other antibiotic agents; Z90.49 Acquired absence of other specified parts of digestive tract; Z88.8 Allergy status to other drugs, medicaments and biological substances; Z91.14 Patient's other noncompliance with medication regimen

== ENCOUNTER → 2017-06-13 | Outpatient (CLI) | payer MEDICARE, MEDICAID ==
[~2017-06-13] MED LIST changes: +APAP650 PO; +FERREX 150 PLU1 EAC1 PO; +KEFLEX500 M1 PO; +LIDOPATCH1 EACH TOP; +NYSTATIN100000 UNI SW&SWALLOW; +VITAMIN D2400 UNIT PO; +ZOFRAN ODT4 MG PO
[2017-06-13 12:52] LABS: ABSOLUTE EOSINOPHILS 0.1 thou/uL (0.0-0.7); ABSOLUTE LYMPHOCYTES 0.6 thou/uL (0.8-5.3); ABSOLUTE MONOCYTES 0.5 thou/uL (0.0-1.2); ABSOLUTE NEUTROPHILS 3.5 thou/uL (1.6-8.1); BASOPHILS 0.5 %; EOSINOPHILS 1.1 %; HEMATOCRIT 27.8 % (42.0-52.0); HEMOGLOBIN 9.5 gm/dL (14.0-18.0); LYMPHOCYTES 12.2 %; MCH 31.9 pg (26.0-34.0); MCHC 34.1 g/dL (28.0-37.0); MCV 93.5 fL (80.0-100.0); MONOCYTES 10.3 %; MPV 8.8 fl. (7.2-11.1); NUCLEATED RBCS 0 /100WBC; PLATELET COUNT* 59 thou/uL (150-400); POLYS 75.9 %; RBC 2.97 mil/uL (4.50-6.00); WBC 4.6 thou/uL (4.0-11.0)
[2017-06-13 13:00] VITALS: BP 132/74
[2017-06-13 13:00] LABS: INR 1.3; PROTIME 12.3 Seconds (9.20-11.50)
[2017-06-13 13:04] LABS: ALBUMIN 2.4 g/dL (3.4-5.0); CALCIUM 8.4 mg/dL (8.5-10.1); CREATININE 1.7 mg/dL (0.6-1.3); TOTAL BILIRUBIN 1.1 mg/dL (<0.1-1.0); TOTAL PROTEIN 7.5 g/dL (6.4-8.2)
[2017-06-13 14:38] VITALS: BP 122/80
[2017-06-13 14:51] LABS: BF RBC <1000 /mm3; TOTAL CELL COUNT 174 /mm3
[2017-06-13 14:58] LABS: CLARITY CLEAR; COLOR YELLOW; TOTAL VOLUME 1810 ml
[2017-06-13 15:17] LABS: SOURCE PARACENTESIS
[2017-06-13 15:22] LABS: BF LYMPHOCYTES 41 %; BF MONOCYTES 26 %; BF POLYS 33 %; BF TISSUE 29 /100 WBC
--- NOTE | 2017-06-13 16:46 | NUR ---
INFUSION COMPLETED AND TOLERATED WELL.
--- NOTE | 2017-09-09 13:02 | NUR ---
LATE ENTRY FOR 06/13/17 ALBUMIN STOP TIME [id number]
== END | disposition home or self-care (01) ==
LOC: M.LAB 12:00 → M.INFUS 12:10 → M.ULTRA 13:00
PROVIDERS: Internal Medicine Gastroenterology
DX: R18.8 Other ascites (principal); Z87.19 Personal history of other diseases of the digestive system; Z87.440 Personal history of urinary (tract) infections; Z87.01 Personal history of pneumonia (recurrent); Z88.8 Allergy status to other drugs, medicaments and biological substances; Z79.899 Other long term (current) drug therapy

== ENCOUNTER 2017-09-02 14:22 | Inpatient (IN) | payer MEDICARE, MEDICAID ==
[~2017-09-02] VITALS: Ht 167.6 cm; Wt 57.2 kg
[~2017-09-02 14:22] MED LIST changes: -APAP650 PO; -KEFLEX500 M1 PO; -VITAMIN D2400 UNIT PO; -ZOFRAN ODT4 MG PO
[2017-09-02] MEDS ORDERED: NEXIUM40 MG PO (14:38)
[2017-09-02] MEDS ORDERED: VITAMIN D2400 UNIT PO (14:38)
[2017-09-02 14:45] VITALS: BP 122/60
[2017-09-02 15:30] LABS: ABSOLUTE LYMPHOCYTES 0.8 thou/uL (0.8-5.3); ABSOLUTE MONOCYTES 0.5 thou/uL (0.0-1.2); ABSOLUTE NEUTROPHILS 2.7 thou/uL (1.6-8.1); BASOPHILS 0.6 %; EOSINOPHILS 0.6 %; HEMATOCRIT 24.5 % (42.0-52.0); HEMOGLOBIN 8.6 gm/dL (14.0-18.0); MCH 31.6 pg (26.0-34.0); MCV 90.3 fL (80.0-100.0); MONOCYTES 12.7 %; MPV 8.8 fl. (7.2-11.1); NUCLEATED RBCS 0 /100WBC; PLATELET COUNT* 53 thou/uL (150-400); POLYS 67.1 %; RBC 2.71 mil/uL (4.50-6.00); RDW-CV 15.1 % (10.5-14.5)
[2017-09-02 15:38] LABS: ANION GAP 7 mmol/L (7-16); BUN 19 mg/dL (7-18); CHLORIDE 105 mmol/L (98-107); CO2 25 mmol/L (21-32); CREATININE 1.5 mg/dL (0.6-1.3); GLUCOSE 84 mg/dL (70-99); POTASSIUM 4.2 mmol/L (3.5-5.1); SODIUM 137 mmol/L (136-145)
[2017-09-02 15:49] LABS: ALKALINE PHOSPHATASE 138 U/L (46-116); LIPASE 324 U/L (73-393); NT-PRO BRAIN NAT PEPTIDE 462 pg/mL (<300); SGOT 26 U/L (15-37); SGPT 16 U/L (30-65); TOTAL BILIRUBIN 1.2 mg/dL (<0.1-1.0); TOTAL PROTEIN 6.8 g/dL (6.4-8.2); TROPONIN-I LEVEL <0.06 ng/mL (<0.06)
[2017-09-02 17:22] LABS: URINE BILIRUBIN NEGATIVE (Negative); URINE BLOOD 2+ (Negative); URINE CLARITY CLEAR; URINE COLOR YELLOW; URINE GLUCOSE-RANDOM NEGATIVE (Negative); URINE KETONES NEGATIVE (Negative); URINE LEUKOCYTES-REFLEX NEGATIVE (Negative); URINE NITRITE-REFLEX NEGATIVE (Negative); URINE PROTEIN NEGATIVE (Negative); URINE UROBILINOGEN 0.2 E.U./dl (0.2-1.0)
[2017-09-02 18:10] LABS: BACTERIA-REFLEX 1-9 Few /HPF (None Seen); CASTS None Seen /LPF (None Seen); MUCUS None Seen strn/LPF (None Seen); SQUAMOUS 0-3 Few /LPF (0-3); URINE WBC-REFLEX 6-15 Few /HPF (0-5)
[2017-09-02 18:11] LABS: CRYSTALS None Seen /LPF (None Seen); URINE RBC 0-2 Rare /HPF (0-2)
[2017-09-02 18:22] VITALS: BP 120/58
[2017-09-02 18:32] VITALS: BP 109/56
[2017-09-02 20:45] VITALS: BP 107/53
[2017-09-02 21:00] VITALS: BP 107/53
[2017-09-03 00:27] VITALS: BP 113/50
[2017-09-03 04:23] VITALS: BP 113/52
--- NOTE | 2017-09-03 05:09 | NUR ---
PATIENT HAS SLEPT OFF AND ON DURING THE NIGHT BUT RESTLESS AT TIMES. VSS ON 2L 02 VIA NASAL CANNULA. PATIENT IS ALERT BUT CONFUSED AND FORGETFUL. PATIENT HAS BEEN TURNED EVERY 2 HRS BUT ROLLS BACK ONTO HIS BOTTOM SHORTLY AFTER BEING REPOSITIONED EACH TIME. PATIENT HAS USED URINAL DURING SHIFT. NO BM NOTED. LEFT WRIST BRACE AND LEFT LEG BRACE IN PLACE. IV IN RIGHT FOREARM- NS @100ML/HR. PATIENT HAS REMAINED ON NECTAR THICKENED LIQUIDS AND SWALLOW PRECAUTIONS. PATIENT REFUSES SCD'S AND REFUSES TO HAVE DAVIS CATHETER.
[2017-09-03 08:00] VITALS: BP 126/57
--- NOTE | 2017-09-03 08:00 | NUR ---
AM ASSESSMENT COMPLETE, DEFER TO COMPUTER CHARTING. ALERT, ORIENTED TO SITUATION AND SELF. DENIES, PAIN, DIZZINESS OR ANY DISCOMFORT AT THIS TIME. 02 ON 2L PER NC - NON PRODUCTIVE COUGH. CALL LIGHT WITHIN REACH. WILL MONITOR.
--- NOTE | 2017-09-03 10:13 | EKG ---
[place] [address] ELECTROCARDIOGRAM REPORT Name: SAE LUIS Room: [address] IN .R.#: [id number] Admission: 09/02/17 Attend Phys: Stephy Saunders Discharge: Date of : 42 Report #: [id number] THIS REPORT FOR: //name// [facility] ED Test Date: 2017-09-02 Test Time: 15:00:53 Pat Name: SAE LUIS Department: Room: Gender: E Commerce Marketing Manager: [place] : 1940 Requested By: Rosario Beaulieu Order Number: [id number] MD: Trevon Ambriz Measurements Intervals [place] Rate: 76 P: 11 NE: 161 QRS: 0 QRSD: 84 T: 91 QT: 432 QTc: 486 Interpretive Statements Sinus rhythm Low voltage, precordial leads baseline artifact Compared to ECG 05/20/2017 09:19:08 Low QRS voltage now present Electronically Signed On 09-03-2017 10:13:21 CDT by Trevon Ambriz [email or web address] <ELECTRONICALLY SIGNED> By: Trevon Ambriz MD, [facility] 09/03/17 1013 1500 1500 Trevon Ambriz MD, [facility] /EPI
--- NOTE | 2017-09-03 11:16 | NUR ---
RECEIVED PHONE CALL FROM [facility]. SHE SAID THEY WILL NOT BE ABLE TO ACCEPT PT.BACK ON SERVICE WITH THEM WHEN HE IS DISCHARGED FROM THE HOSPITAL. SHE WILL CALL AND LET HER KNOW,ALSO. THEY HAVE FELT FOR SEVERAL MONTHS THAT IS NOT GIVING PT.HIS LACTULOSE OFTEN DIRECTED DUE TO IT CAUSING HIM TO HAVE LOOSE STOOLS. THIS IS THE DESIRED AFFECT BUT DOES NOT WANT TO CLEAN UP SO MANY STOOLS. ALSO REFUSED TO SIGN A PT CARE AGREEMENT THAT [facility] HAD DRAWN UP FOR THEM. CM WILL FOLLOW.
[2017-09-03 15:37] VITALS: BP 108/52
--- NOTE | 2017-09-03 17:11 | NUR ---
SPOKE WITH PT. NO VISITORS PRESENT. HE WAS SOMEWHAT DIFFICULT TO UNDERSTAND DUE TO NOT HAVING ANY TEETH. LIVES WITH . HE SAID SHE BATHES HIM,HELPS HIM DRESS, COOKS,GIVES HIM HIS MEDICINE. PT.MADE IT SOUND IF HE AMBULATED AT HOME. IN REVIEW OF CHARTING AND IN SPEAKING WITH NURSE,IT SOUNDS IF HE IS MOSTLY WC BOUND. ATTEMPTED TO CALL ,RYAN. HAD TO LEAVE MESSAGES ON VM AT HOME AND HER CELL PHONE.
--- NOTE | 2017-09-03 18:33 | NUR ---
RESTING IN BED WITH HOB ELEVATED. IN VISITING EARLIER REPORTING PATIENT USING LIDOCAINE PATCH AT HOME ON NECK AND WRIST FOR CHRONIC DISCOMFORT - ORDERS RECIEVED AND PATCHS PLACED TO ASSIST WITH COMFORT, PATIENT REPORTING FEELING BETTER. INCONTINENT OF BM AND URINE - DERRICK CARE GIVEN. ASPIRATION PERCAUTIONS WITH MEALS - HOB REMAINS ELEVATED. CALL LIGHT WTIHIN REACH. WILL CONTINUE WITH PLAN OF CARE.
[2017-09-03 20:00] VITALS: BP 124/64
[2017-09-04 03:56] LABS: HEMATOCRIT 24.3 % (42.0-52.0); HEMOGLOBIN 8.6 gm/dL (14.0-18.0); MCHC 35.6 g/dL (28.0-37.0); MPV 9.2 fl. (7.2-11.1); NUCLEATED RBCS 0 /100WBC; PLATELET COUNT* 52 thou/uL (150-400); RDW-CV 15.4 % (10.5-14.5); WBC 5.1 thou/uL (4.0-11.0)
[2017-09-04 06:17] LABS: ABSOLUTE BASOPHILS 0.1 thou/uL (0.0-0.2); ABSOLUTE EOSINOPHILS 0.1 thou/uL (0.0-0.7); ABSOLUTE LYMPHOCYTES 0.5 thou/uL (0.8-5.3); ABSOLUTE MONOCYTES 0.4 thou/uL (0.0-1.2); ABSOLUTE NEUTROPHILS 4.1 thou/uL (1.6-8.1); METAMYELOCYTES 1 %; PLATELET ESTIMATE ADEQUATE
--- NOTE | 2017-09-04 07:48 | NUR ---
PATIENT SLEPT PART OF THE NIGHT. PATIENT HAS HAD MULTIPLE LOOSE STOOLS THIS SHIFT. STOOL SAMPLE WAS SENT FOR CDIFF. PATIENT WAS GIVEN NAUSEA MEDS TWICE THIS SHIFT. WILL CONTINUE TO MONITOR.
[2017-09-04 08:00] VITALS: BP 130/69
[2017-09-04 16:00] VITALS: BP 116/65
--- NOTE | 2017-09-04 17:17 | NUR ---
PT RESTING IN BED THROUGHOUT SHIFT. PT PARTICIPATES IN THERAPY. ASPIRATION PRECAUTIONS. PT CONTINUES TO HAVE LOOSE STOOLS. PT INCONTINENT OF STOOL AND URINE, PT REPOSTIONED FREQUENTLY. AT BS AND UPDATED ON PLAN OF CARE
[2017-09-04 20:00] VITALS: BP 120/62
--- NOTE | 2017-09-05 04:14 | NUR ---
PATIENT RESTING THROUGHOUT THE NIGHT. DENIES COMPLAINTS OF PAIN, DISCOMFORT, OR SOA. TURN EVERY TWO HOURS. HOB ELEVATED. THICKEN LIQ. BED IN LOW POSITION, CALL LIGHT IN REACH, BED ALARM ON. NO SIGN OF DISTRESS. CONT. WITH CURRENT PLAN OF CARE AT THIS TIME.
[2017-09-05 04:19] LABS: CALCIUM 7.7 mg/dL (8.5-10.1); CREATININE 1.4 mg/dL (0.6-1.3); POTASSIUM 3.7 mmol/L (3.5-5.1)
--- NOTE | 2017-09-05 07:30 | NUR ---
CHANGE OF SHIFT, BEDSIDE [facility] ASSUMED PATIENT CARE
[2017-09-05 08:00] VITALS: BP 106/58
[2017-09-05] MEDS ORDERED: KEFLEX500 M1 PO (10:33)
--- NOTE | 2017-09-05 11:59 | NUR ---
SPOKE WITH PT.'S ,RYAN,ON HOME PHONE. TOLD HER PT.HAS DISCHARGE ORDERS. SHE IS NOT INTERESTED IN GOING TO A SNF. SHE SAID HE WAS AT [facility] FOR A SKILLED STAY AND SAID 'THAT WAS A HURTFUL THING IN THE LONG RUN. WE KNOW HOW TO TAKE CARE OF HIM.' SHE SAID HER DAUGHTER IN LAW HELPS HER WITH HIM AT TIMES. SOME DAYS ARE BETTER FOR HIM THAN OTHERS. DISCUSSED POOR PROGRESS IN THERAPY. SHE IS NOT SURE HE IS READY TO GO HOME DUE TO HIS DIARRHEA. EXPLAINED HE IS ON LACTULOSE AND THAT WILL CAUSE LOOSE STOOLS. SHE DID NOT FEEL HE IS ON THAT MED,HERE. TOLD HER IT WAS ON HIS MED LIST.SHE WOULD LIKE TO TALK WITH . SHE IS AWARE A WILL NOT TAKE HIM BACK ON SERVICE FOR HOME HEALTH. SHE WOULD LIKE TO TRY [facility]. WILL MAKE REFERRAL. NOTIFIED OF WANTING TO TALK WITH HIM. HE WILL CALL HER.
[2017-09-05] MEDS ORDERED: ZOFRAN ODT4 MG PO (12:31)
[2017-09-05 14:43] VITALS: BP 106/58
--- NOTE | 2017-09-05 15:00 | NUR ---
SPOKE WITH IN ROOM,EARLIER. SHE SAID SHE HAD SPOKEN WITH . SHE TOLD HIM SHE WOULD SEE WHAT HER LOOKED LIKE AND FELT LIKE WHEN SHE GOT HERE. PT.A LITTLE NAUSEOUS. SAID DRRduyWOULD COME TO SEE PT.WHEN SHE GOT HERE. SAMANTHA STYLES PUT CALL INTO DR. HE SAID IF FELT LIKE SHE COULD TAKE HIM HOME TODAY,THEY COULD GO. SAID PT.FELT LIKE HE COULD GO HOME TODAY. SPOKE WITH [facility]. SHE ACCEPTED PT.TO SERVICE. FAXED H&P AND ORDERS TO [facility].
[2017-09-05] MEDS ORDERED: APAP650 PO (16:51)
--- NOTE | 2017-09-05 17:30 | NUR ---
PATIENT DISCHARGED TO HOME WITH H/H DC INFORMATION GIVEN, ACKNOWLEDGED AND SIGNED COPIES GIVEN IV REMOVED PESRSONAL BELONGINGS RETURNED PATIENT ASSISTED OUT VIA WC WITH ASSIST OF 3 TO GET INTO WIFES CAR
== END 2017-09-05 17:30 | disposition home health service (06) | DRG 177 ==
LOC: M.ERS 14:22 → M.ORTHSURG 16:50 → M.TBA-ER 16:50 → M.ORTHSURG 18:27
PROVIDERS: Personal Emergency Response Attendant; Physician Assistant; ADMIT Internal Medicine
DX: J69.0 Pneumonitis due to inhalation of food and vomit (principal); E43 Unspecified severe protein-calorie malnutrition; K72.90 Hepatic failure, unspecified without coma; D64.9 Anemia, unspecified; Z86.73 Personal history of transient ischemic attack (TIA), and cerebral infarction without residual deficits; Z79.899 Other long term (current) drug therapy; Z88.1 Allergy status to other antibiotic agents; Z88.8 Allergy status to other drugs, medicaments and biological substances

== ENCOUNTER → 2017-09-15 | Outpatient (CLI) | payer MEDICARE, OTHER, MEDICAID ==
[~2017-09-15] MED LIST changes: +APAP650 PO; +KEFLEX500 M1 PO; +VITAMIN D2400 UNIT PO; +ZOFRAN ODT4 MG PO
[2017-09-15 12:58] LABS: ABSOLUTE LYMPHOCYTES 0.5 thou/uL (0.8-5.3); ABSOLUTE MONOCYTES 0.4 thou/uL (0.0-1.2); BASOPHILS 0.3 %; EOSINOPHILS 1.1 %; HEMATOCRIT 25.6 % (42.0-52.0); HEMOGLOBIN 8.9 gm/dL (14.0-18.0); LYMPHOCYTES 13.7 %; MCH 31.8 pg (26.0-34.0); MCHC 34.9 g/dL (28.0-37.0); MCV 91.2 fL (80.0-100.0); MONOCYTES 10.1 %; MPV 8.8 fl. (7.2-11.1); NUCLEATED RBCS 0 /100WBC; PLATELET COUNT* 61 thou/uL (150-400); POLYS 74.8 %; RDW-CV 15.3 % (10.5-14.5)
[2017-09-15 13:05] LABS: INR 1.3; PROTIME 12.2 Seconds (9.20-11.50)
[2017-09-15 13:11] LABS: ALBUMIN 2.1 g/dL (3.4-5.0); CALCIUM 8.2 mg/dL (8.5-10.1); CREATININE 1.4 mg/dL (0.6-1.3); POTASSIUM 3.8 mmol/L (3.5-5.1); TOTAL BILIRUBIN 0.7 mg/dL (<0.1-1.0); TOTAL PROTEIN 7.2 g/dL (6.4-8.2)
[2017-09-15 15:05] VITALS: BP 121/64
--- NOTE | 2017-09-15 16:37 | NUR ---
Pt arrived at the PACU dept from US post paracentesis with staff via cart at 1502. Iv started at 1516 24g to right forearm. Pt had 3,400 ml pulled off so 25mg of Albumin was started at 1520 and completed at 1615. Iv removed at 1617. Pt here and assited in getting pt to the w/c. Pt wheeled out with pacu staff and assisted to the car at 1634. Pt tolerated infusion well with no s/sx of reactions.
== END ==
LOC: M.LAB 12:00 → M.INFUS 12:15 → M.ULTRA 13:00
PROVIDERS: Internal Medicine Gastroenterology
DX: K74.60 Unspecified cirrhosis of liver (principal); R18.8 Other ascites

== ENCOUNTER → 2017-10-02 | Outpatient (CLI) | payer MEDICARE, OTHER, MEDICAID ==
[2017-10-02 13:01] LABS: ABSOLUTE LYMPHOCYTES 0.5 thou/uL (0.8-5.3); ABSOLUTE MONOCYTES 0.5 thou/uL (0.0-1.2); ABSOLUTE NEUTROPHILS 2.9 thou/uL (1.6-8.1); BASOPHILS 0.3 %; EOSINOPHILS 0.6 %; HEMATOCRIT 23.7 % (42.0-52.0); LYMPHOCYTES 11.8 %; MCH 31.5 pg (26.0-34.0); MCHC 33.9 g/dL (28.0-37.0); MONOCYTES 12.9 %; MPV 9.2 fl. (7.2-11.1); NUCLEATED RBCS 0 /100WBC; PLATELET COUNT* 56 thou/uL (150-400); POLYS 74.4 %; RBC 2.55 mil/uL (4.50-6.00); RDW-CV 15.6 % (10.5-14.5); WBC 3.8 thou/uL (4.0-11.0)
[2017-10-02 13:06] LABS: INR 1.3; PROTIME 12.7 Seconds (9.20-11.50)
[2017-10-02 13:10] LABS: ALBUMIN 2.1 g/dL (3.4-5.0)
[2017-10-02 13:13] LABS: CALCIUM 8.3 mg/dL (8.5-10.1); CREATININE 1.5 mg/dL (0.6-1.3); POTASSIUM 4.5 mmol/L (3.5-5.1); TOTAL BILIRUBIN 0.8 mg/dL (<0.1-1.0); TOTAL PROTEIN 6.9 g/dL (6.4-8.2)
[2017-10-02 14:46] LABS: BF RBC <1000 /mm3; TOTAL CELL COUNT 144 /mm3
[2017-10-02 15:03] LABS: CLARITY CLEAR; COLOR AMBER; TOTAL VOLUME 3210 ml
[2017-10-02 15:09] VITALS: BP 118/57
[2017-10-02 15:21] LABS: BF LYMPHOCYTES 31 %; BF POLYS 22 %; BF TISSUE 47 /100 WBC; SOURCE PARACETESIS
[2017-10-02 15:40] VITALS: BP 105/53
== END ==
LOC: M.INFUS 05:53 → M.LAB 12:30 → M.ULTRA 13:00
PROVIDERS: Nurse Practitioner Adult Health
DX: K74.60 Unspecified cirrhosis of liver (principal); R18.8 Other ascites

== ENCOUNTER → 2018-07-09 | Outpatient (CLI) | payer MEDICARE, OTHER, MEDICAID ==
[~2018-07-09] MED LIST changes: +LIDOCAINE PAIN1 EACH TOP
[2018-07-09 15:54] LABS: HEMATOCRIT 25.3 % (42.0-52.0); HEMOGLOBIN 8.6 gm/dL (14.0-18.0); MCHC 34.1 g/dL (28.0-37.0); MCV 90.9 fL (80.0-100.0); MPV 8.4 fl. (7.2-11.1); RBC 2.78 mil/uL (4.50-6.00); RDW-CV 15.6 % (10.5-14.5); WBC 4.7 thou/uL (4.0-11.0)
[2018-07-09 16:14] LABS: CALCIUM 7.9 mg/dL (8.5-10.1); CREATININE 1.7 mg/dL (0.6-1.3); POTASSIUM 4.1 mmol/L (3.5-5.1); TOTAL BILIRUBIN 0.7 mg/dL (<0.1-1.0); TOTAL PROTEIN 6.9 g/dL (6.4-8.2)
== END ==
LOC: M.LAB 15:16
PROVIDERS: Nurse Practitioner Family
DX: K70.31 Alcoholic cirrhosis of liver with ascites (principal)

== ENCOUNTER → 2018-07-27 | Outpatient (CLI) | payer MEDICARE, MEDICAID | LOC: M.ULTRA 07-23 14:49 | DX: R60.9 Edema, unspecified (principal); R59.9 Enlarged lymph nodes, unspecified ==

== ENCOUNTER 2018-07-30 11:34 | Inpatient (IN) | payer MEDICARE, OTHER, MEDICAID ==
[~2018-07-30] VITALS: Ht 167.6 cm; Wt 61.7 kg
[2018-07-30 11:54] VITALS: BP 120/64
[2018-07-30] MEDS ORDERED: CONSTULOSE10 GM/15 M PO (12:08)
[2018-07-30 15:26] LABS: URINE BILIRUBIN NEGATIVE (Negative); URINE BLOOD 2+ (Negative); URINE CLARITY CLEAR; URINE COLOR YELLOW; URINE GLUCOSE-RANDOM NEGATIVE (Negative); URINE KETONES TRACE (Negative); URINE LEUKOCYTES-REFLEX NEGATIVE (Negative); URINE NITRITE-REFLEX NEGATIVE (Negative); URINE PROTEIN NEGATIVE (Negative); URINE SPECIFIC GRAVITY 1.015 (1.005-1.030); URINE UROBILINOGEN 0.2 E.U./dl (0.2-1.0)
[2018-07-30 15:37] LABS: HYALINE CASTS 4-10 Moderate /LPF (None Seen); MUCUS None Seen strn/LPF (None Seen); SQUAMOUS 0-3 Few /LPF (0-3)
[2018-07-30 15:38] LABS: BACTERIA-REFLEX 1-9 Few /HPF (None Seen); CRYSTALS None Seen /LPF (None Seen); URINE RBC 3-10 Few /HPF (0-2); URINE WBC-REFLEX 0-5 Rare /HPF (0-5)
[2018-07-30 15:52] LABS: ABSOLUTE LYMPHOCYTES 0.5 thou/uL (0.8-5.3); ABSOLUTE MONOCYTES 0.6 thou/uL (0.0-1.2); ABSOLUTE NEUTROPHILS 3.5 thou/uL (1.6-8.1); BASOPHILS 0.4 %; EOSINOPHILS 0.6 %; HEMATOCRIT 24.8 % (42.0-52.0); HEMOGLOBIN 8.6 gm/dL (14.0-18.0); LYMPHOCYTES 11.3 %; MCHC 34.5 g/dL (28.0-37.0); MCV 89.9 fL (80.0-100.0); MONOCYTES 13.6 %; MPV 9.2 fl. (7.2-11.1); NUCLEATED RBCS 0 /100WBC; PLATELET COUNT* 80 thou/uL (150-400); POLYS 74.1 %; RBC 2.76 mil/uL (4.50-6.00); RDW-CV 15.2 % (10.5-14.5); WBC 4.7 thou/uL (4.0-11.0)
[2018-07-30 16:01] LABS: APTT 31.3 Seconds (25.0-31.3); INR 1.3; PROTIME 12.8 Seconds (9.20-11.50)
[2018-07-30 16:25] LABS: ALBUMIN 1.9 g/dL (3.4-5.0); CREATININE 1.6 mg/dL (0.6-1.3); POTASSIUM 4.7 mmol/L (3.5-5.1); TOTAL BILIRUBIN 0.7 mg/dL (<0.1-1.0); TOTAL PROTEIN 6.6 g/dL (6.4-8.2)
[2018-07-30 17:28] VITALS: BP 100/50
[2018-07-30 17:55] VITALS: BP 107/51
[2018-07-30 22:41] VITALS: BP 106/64
[2018-07-31 04:57] LABS: % SATURATION 19 % (20-39); IRON 29 ug/dL (50-175)
[2018-07-31 08:05] VITALS: BP 115/51
[2018-07-31 15:22] VITALS: BP 111/57
[2018-07-31 21:00] VITALS: BP 106/51
[2018-08-01 08:25] VITALS: BP 113/72
[2018-08-01 17:25] VITALS: BP 109/53
[2018-08-01 18:20] VITALS: BP 121/60
[2018-08-01 20:30] VITALS: BP 111/63
[2018-08-02 08:00] VITALS: BP 118/84
[2018-08-02 12:54] LABS: HEMATOCRIT 24.9 % (42.0-52.0); HEMOGLOBIN 8.5 gm/dL (14.0-18.0); MCH 30.8 pg (26.0-34.0); MCHC 34.3 g/dL (28.0-37.0); MCV 89.9 fL (80.0-100.0); MPV 8.6 fl. (7.2-11.1); NUCLEATED RBCS 0 /100WBC; PLATELET COUNT* 78 thou/uL (150-400); RBC 2.77 mil/uL (4.50-6.00); RDW-CV 15.7 % (10.5-14.5); WBC 4.5 thou/uL (4.0-11.0)
[2018-08-02 13:18] LABS: ALBUMIN 1.8 g/dL (3.4-5.0); CALCIUM 8.3 mg/dL (8.5-10.1); CREATININE 1.7 mg/dL (0.6-1.3); POTASSIUM 3.6 mmol/L (3.5-5.1); TOTAL BILIRUBIN 0.8 mg/dL (<0.1-1.0); TOTAL PROTEIN 6.6 g/dL (6.4-8.2)
[2018-08-02 13:55] LABS: ABSOLUTE LYMPHOCYTES 0.4 thou/uL (0.8-5.3); ABSOLUTE MONOCYTES 0.6 thou/uL (0.0-1.2); ABSOLUTE NEUTROPHILS 3.5 thou/uL (1.6-8.1)
[2018-08-02 13:56] LABS: ANISOCYTOSIS Occasional; PLATELET ESTIMATE DECREASED
[2018-08-02 16:00] VITALS: BP 115/63
[2018-08-02 20:40] VITALS: BP 112/63
[2018-08-03 05:19] LABS: ABSOLUTE LYMPHOCYTES 0.3 thou/uL (0.8-5.3); ABSOLUTE MONOCYTES 0.6 thou/uL (0.0-1.2); ABSOLUTE NEUTROPHILS 4.4 thou/uL (1.6-8.1); BASOPHILS 0.4 %; EOSINOPHILS 0.2 %; HEMATOCRIT 22.5 % (42.0-52.0); HEMOGLOBIN 7.7 gm/dL (14.0-18.0); LYMPHOCYTES 6.4 %; MCH 30.4 pg (26.0-34.0); MCHC 34.1 g/dL (28.0-37.0); MCV 89.2 fL (80.0-100.0); MPV 8.8 fl. (7.2-11.1); NUCLEATED RBCS 0 /100WBC; PLATELET COUNT* 72 thou/uL (150-400); RBC 2.52 mil/uL (4.50-6.00); RDW-CV 15.2 % (10.5-14.5); WBC 5.4 thou/uL (4.0-11.0)
[2018-08-03 05:42] LABS: ALBUMIN 1.7 g/dL (3.4-5.0); CALCIUM 8.3 mg/dL (8.5-10.1); CREATININE 1.6 mg/dL (0.6-1.3); TOTAL BILIRUBIN 0.6 mg/dL (<0.1-1.0); TOTAL PROTEIN 6.4 g/dL (6.4-8.2)
[2018-08-03 08:41] VITALS: BP 112/60
[2018-08-03 14:51] VITALS: BP 101/53
[2018-08-04 00:30] VITALS: BP 103/43
[2018-08-04 08:15] VITALS: BP 121/55
[2018-08-04] MEDS ORDERED: VOLTAREN100 GM TOP (08:42)
[2018-08-04] MEDS ORDERED: TRAMADOL 50 MG50 MG PO (08:47)
[2018-08-04 14:12] VITALS: BP 121/55
== END 2018-08-04 15:31 | disposition home or self-care (01) | DRG 558 ==
LOC: M.ERS 11:34 → M.3W 16:42 → M.TBA-ER 16:42 → M.3W 17:33
PROVIDERS: Internal Medicine; Nurse Practitioner Family; ADMIT Internal Medicine
DX: M71.572 Other bursitis, not elsewhere classified, left ankle and foot (principal); R18.8 Other ascites; E44.0 Moderate protein-calorie malnutrition; K74.60 Unspecified cirrhosis of liver; S86.812A Strain of other muscle(s) and tendon(s) at lower leg level, left leg, initial encounter; D69.6 Thrombocytopenia, unspecified; D64.9 Anemia, unspecified; N18.3 Chronic kidney disease, stage 3 (moderate); X58.XXXA Exposure to other specified factors, initial encounter; R26.2 Difficulty in walking, not elsewhere classified; Y92.89 Other specified places as the place of occurrence of the external cause; Y93.89 Activity, other specified; Z88.1 Allergy status to other antibiotic agents; Y99.8 Other external cause status; Z68.22 Body mass index [BMI] 22.0-22.9, adult; Z88.8 Allergy status to other drugs, medicaments and biological substances; Z90.49 Acquired absence of other specified parts of digestive tract; Z79.899 Other long term (current) drug therapy

== ENCOUNTER 2018-08-06 01:29 | Emergency (ER) | payer MEDICARE, OTHER, MEDICAID ==
[~2018-08-06] VITALS: Ht 172.7 cm; Wt 56.7 kg
[~2018-08-06 01:29] MED LIST changes: +CONSTULOSE10 GM/15 M PO; +TRAMADOL 50 MG50 MG PO; +VOLTAREN100 GM TOP
[2018-08-06 01:51] LABS: ABSOLUTE LYMPHOCYTES 0.5 thou/uL (0.8-5.3); ABSOLUTE MONOCYTES 0.8 thou/uL (0.0-1.2); ABSOLUTE NEUTROPHILS 5.6 thou/uL (1.6-8.1); BASOPHILS 0.4 %; EOSINOPHILS 0.2 %; HEMATOCRIT 24.4 % (42.0-52.0); HEMOGLOBIN 8.4 gm/dL (14.0-18.0); LYMPHOCYTES 7.2 %; MCH 30.9 pg (26.0-34.0); MCHC 34.6 g/dL (28.0-37.0); MCV 89.5 fL (80.0-100.0); NUCLEATED RBCS 0 /100WBC; PLATELET COUNT* 85 thou/uL (150-400); POLYS 81.2 %; RBC 2.73 mil/uL (4.50-6.00); RDW-CV 15.9 % (10.5-14.5); WBC 6.9 thou/uL (4.0-11.0)
[2018-08-06 02:07] LABS: ALBUMIN 1.8 g/dL (3.4-5.0); ALKALINE PHOSPHATASE 267 U/L (46-116); ANION GAP 11 mmol/L (7-16); BUN 24 mg/dL (7-18); CALCIUM 8.4 mg/dL (8.5-10.1); CHLORIDE 106 mmol/L (98-107); CO2 24 mmol/L (21-32); CREATININE 1.8 mg/dL (0.6-1.3); GLUCOSE 100 mg/dL (70-99); POTASSIUM 4.3 mmol/L (3.5-5.1); SGOT 42 U/L (15-37); SGPT 29 U/L (30-65); SODIUM 141 mmol/L (136-145); TOTAL BILIRUBIN 0.9 mg/dL (<0.1-1.0); TOTAL PROTEIN 6.8 g/dL (6.4-8.2); TROPONIN-I LEVEL <0.06 ng/mL (<0.06)
[2018-08-06] MEDS ORDERED: ALDACTONE50 MG PO (02:27)
[2018-08-06 02:48] LABS: URINE BILIRUBIN NEGATIVE (Negative); URINE BLOOD 2+ (Negative); URINE CLARITY CLEAR; URINE COLOR YELLOW; URINE GLUCOSE-RANDOM NEGATIVE (Negative); URINE KETONES NEGATIVE (Negative); URINE LEUKOCYTES-REFLEX NEGATIVE (Negative); URINE NITRITE-REFLEX NEGATIVE (Negative); URINE PROTEIN NEGATIVE (Negative); URINE SPECIFIC GRAVITY 1.015 (1.005-1.030); URINE UROBILINOGEN 0.2 E.U./dl (0.2-1.0)
[2018-08-06 03:14] LABS: SQUAMOUS 0-3 Few /LPF (0-3); URINE RBC >20 Many /HPF (0-2); URINE WBC-REFLEX 0-5 Rare /HPF (0-5)
[2018-08-06 03:15] LABS: BACTERIA-REFLEX >30 Many /HPF (None Seen); CRYSTALS None Seen /LPF (None Seen); FINE GRANULAR CASTS 4-10 Moderate /LPF (None Seen); HYALINE CASTS 4-10 Moderate /LPF (None Seen); MUCUS 4-6 Moderate strn/LPF (None Seen)
[2018-08-06] MEDS ORDERED: ROXICODONE5 M2 PO (04:40)
[2018-08-06 05:11] VITALS: BP 134/65
--- NOTE | 2018-08-06 13:29 | EKG ---
[place] [address] ELECTROCARDIOGRAM REPORT Name: SAE LUIS Room: [facility]#: [id number] Admission: 08/06/18 Attend Phys: Discharge: 08/06/18 Date of : 44 Report #: [id number] THIS REPORT FOR: //name// [facility] ED Test Date: 2018-08-06 Test Time: 01:33:52 Pat Name: SAE LUIS Department: Room: Gender: M Radio Disc Jockey: MARYJANE : 1940 Requested By: Lexii Jensen Order Number: [id number] MD: Trevon Ambriz Measurements Intervals [place] Rate: 93 P: 36 [place]: 135 QRS: -10 QRSD: 102 T: 33 QT: 408 QTc: 508 Interpretive Statements Sinus rhythm Low voltage, precordial leads Prolonged QT interval Compared to ECG 05/27/2018 08:06:51 no change Electronically Signed On 08-06-2018 13:29:07 CDT by Trevon Ambriz [email or web address] <ELECTRONICALLY SIGNED> By: Trevon Ambriz MD, [facility] 08/06/18 1329 0133 0133 Trevon Ambriz MD, FAC /EPI
== END 2018-08-06 05:14 | disposition home or self-care (01) ==
LOC: M.ERS 01:29
PROVIDERS: Emergency Medicine
DX: J90 Pleural effusion, not elsewhere classified (principal); M79.652 Pain in left thigh; Z88.1 Allergy status to other antibiotic agents; Z88.5 Allergy status to narcotic agent; Z88.8 Allergy status to other drugs, medicaments and biological substances; Z86.73 Personal history of transient ischemic attack (TIA), and cerebral infarction without residual deficits; Z79.899 Other long term (current) drug therapy

== ENCOUNTER 2018-08-17 19:36 | Inpatient (IN) | payer MEDICARE, OTHER, MEDICAID ==
[~2018-08-17] VITALS: Ht 172.7 cm; Wt 57.8 kg
--- NOTE | ~2018-08-17 | CON ---
[facility] [address] [place] [address] CONSULTATION Name: SAE LUIS Room: [address] IN .R.#: [id number] Admission: 08/17/18 Attend Phys: Stephy Saunders Discharge: Date of : 42 Report #: [id number] THIS REPORT FOR: //name// CC: Iker Johns DATE OF SERVICE: 08/26/2018 HISTORY OF PRESENT ILLNESS: This is a 77-year-old male patient who is not able to provide a reliable history. The is not here and we will try to contact her. I talked to the nurses looking after this patient. They tell me the patient was drowsy, but he is improving now. The review of the patient's records indicates that his medications have been readjusted for the knee problems. He has improved after starting him on some thyroid medications. I do not know what his baseline is and I will try to talk to the patient's . REVIEW OF SYSTEMS: Indicates that this patient has a history of leg pain. He has been on multiple medications for that. He is also having inability to bend those knees, it is a chronic longstanding process. He also had a stroke, which affected the left side of the body. He does not know when the stroke happened. I tried to review the records in the computer. He did have MRIs here, but I do not find any imaging studies, so I suspect the stroke happened and he was managed at some other hospital. He has been here for pancreatitis, hepatic encephalopathy because he has cirrhosis, community-acquired pneumonia, thrombocytopenia. He has inability to transfer from bed to wheelchair. He has a history of pleural effusion. Intermittently, he also had some leg edema. I carried out the 14-point review of systems and this was his relevant 14-point review of systems. He has known liver disease. He has a Madison filter and some chronic renal disease. PAST MEDICAL HISTORY: Positive for stroke. He does not know when it happened. The records indicate it was in 2000 and I do not have the records from that. It looks like presently, he is a DNR. FAMILY HISTORY: Negative for any early age stroke. SOCIAL HISTORY: He indicates he does not drink any alcohol. PHYSICAL EXAMINATION: Indicates his speech is difficult to understand. He does follow commands. His memory is poor. His fund of knowledge is poor, but I do not know what his baseline is. 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 I cannot tell about visual michelle in this patient because he is not able to cooperate. He is weak in all 4 extremities, but he is much weaker in the left upper extremity. His position sense appeared to be present on both sides. There is no meningeal sign in this patient. He could not cooperate for the fundus examination. His tone is increased in all [address] [place] [address] CONSULTATION Name: LUISSAE AVILES Room: [address] IN [facility].#: [id number] Admission: 08/17/18 Attend Phys: Stephy Saunders Discharge: Date of : 42 Report #: [id number] extremities, but is more so in the lower extremities on both sides. His position sense is intact. His reflexes are asymmetrical. His pulses are palpable. He has no edema. His cardiac examination is unremarkable. No respiratory difficulty or rhonchi was noticed. His blood pressure is 118/57, temperature is normal at 98.4, pulse is 76. He did have a CT of the head, which does not show any acute process, but there is a lot of chronic changes in there. IMPRESSION: I suspect the most likely etiology for the patient's symptoms is readjustment of his medications. He has severe baseline problems. His hypothyroidism may have contributed to his symptoms. I discussed as much as I could with the patient and we will also try to talk to the patient's . Until we can talk to the patient's , we will manage it conservatively. I talked to the patient, I think he understands things, but I am not certain and therefore, we will talk to the patient. More than 50 minutes of time was spent taking care of this patient and majority of that time was spent counseling and coordinating. By: 1100 1944Pmanasa Warren MD /nt
[~2018-08-17 19:36] MED LIST changes: +ROXICODONE5 M2 PO
[2018-08-17 19:37] VITALS: BP 115/58
[2018-08-17 21:34] LABS: ABSOLUTE LYMPHOCYTES 0.4 thou/uL (0.8-5.3); ABSOLUTE MONOCYTES 0.7 thou/uL (0.0-1.2); BASOPHILS 0.1 %; EOSINOPHILS 0.2 %; HEMATOCRIT 24.1 % (42.0-52.0); HEMOGLOBIN 8.3 gm/dL (14.0-18.0); LYMPHOCYTES 7.2 %; MCH 31.1 pg (26.0-34.0); MCHC 34.4 g/dL (28.0-37.0); MCV 90.5 fL (80.0-100.0); MONOCYTES 11.3 %; MPV 8.6 fl. (7.2-11.1); NUCLEATED RBCS 0 /100WBC; PLATELET COUNT* 68 thou/uL (150-400); POLYS 81.2 %; RBC 2.66 mil/uL (4.50-6.00); RDW-CV 17.3 % (10.5-14.5); WBC 6.2 thou/uL (4.0-11.0)
[2018-08-17 21:45] LABS: CALCIUM 7.8 mg/dL (8.5-10.1); CREATININE 1.6 mg/dL (0.6-1.3); POTASSIUM 4.3 mmol/L (3.5-5.1)
[2018-08-17 21:55] LABS: ALBUMIN 1.7 g/dL (3.4-5.0); TOTAL BILIRUBIN 0.8 mg/dL (<0.1-1.0); TOTAL PROTEIN 6.4 g/dL (6.4-8.2)
[2018-08-18 00:50] VITALS: BP 121/67
[2018-08-18 00:55] VITALS: BP 122/56
--- NOTE | 2018-08-18 02:23 | NUR ---
TRANSFER FROM ED RECIEVED REPORT AND ASSUMED CARE AT 0055. PT IS MED SURG SO NO MONITOR. DISTOLIC BP SOFT, OTHER THAN THAT VITAL SIGNS STABLE. PT IS BEDREST. PT DOES NOT APPEAR TO HAVE ANY PAIN AT THIS TIME. ASSESSMENT COMPLETED DISCUSSED PLAN OF CARE AND SPOUSE UNDERSTANDS. BED LOCKED, ALARM ON AND CALL LIGHT WITHIN REACH. FALL PRECAUTIONS IN PLACE. HOURLY ROUNDING DONE AND ALL NEEDS MET. NURSING WILL CONTINUE TO MONITOR.
[2018-08-18 08:36] VITALS: BP 102/52
--- NOTE | 2018-08-18 09:15 | NUR ---
REC'D REPORT FROM NOC RN, ASSUMED CARE OF PATIENT APPROX 0730. ORIENTED TO SELF. ABLE TO COMMUNICATE NEEDS TO STAFF, REQUIRES EXTRA TIME TO VOICE NEEDS D/T SPEECH IMPAIRMENT. ASSESSMENT COMPLETE, VS OBTAINED. MED-SURG STATUS. O2 SATS 97% RA. REQUIRES FEEDING ASSISTANCE AND SUPERVISION WHENEVER TAKING IN LIQUIDS OR FOOD. CALL LIGHT IN REACH. HOURLY ROUNDING FOR SAFETY AND PATIENT NEEDS.
--- NOTE | 2018-08-18 10:16 | NUR ---
Pt is A&O. Resides at home with . Pt states that he has a paid caregiver also. Pt states that between and CG, they complete IADLs and majority of ADLs, Pt states that he is able to feed himself. Pt uses a wc for mobility, requires assist with transfers. Pt also has a walker and cane, but states that he really doesn't walk much anymore. Hx of [facility] . Hx of SNF at [facility]. Pt wears home o2 at [facility] only, provided through [facility]. Goal is home at nv. Following
--- NOTE | 2018-08-18 15:36 | EKG ---
[place] [address] ELECTROCARDIOGRAM REPORT Name: ASE LUIS Room: [address] ADM IN .R.#: [id number] Admission: 08/17/18 Attend Phys: Stephy Saunders Discharge: Date of : 42 Report #: [id number] THIS REPORT FOR: //name// [facility] ED Test Date: 2018-08-17 Test Time: 21:09:31 Pat Name: SAE LUIS Department: Room: [facility] Gender: M Permanent Mold Supervisor: Neyda LINK : 1940 Requested By: Danny Sweet Order Number: [id number] MD: Erick Victor Measurements Intervals [place] Rate: 93 P: 29 CA: 134 QRS: -8 QRSD: 96 T: 26 QT: 412 QTc: 513 Interpretive Statements Sinus rhythm Abnormal R-wave progression, early transition Prolonged QT interval Compared to ECG 08/06/2018 01:33:52 No significant changes Electronically Signed On 08-18-2018 15:35:57 CDT by Erick Victor [email or web address] <ELECTRONICALLY SIGNED> By: Erick Victor MD, FACC 08/18/18 1535 08 08 Erick Victor MD, FAC /EPI
[2018-08-18 15:46] VITALS: BP 108/59
[2018-08-18 19:50] VITALS: BP 127/62
[2018-08-19] VITALS: BP 106/53
--- NOTE | 2018-08-19 04:23 | NUR ---
RECIEVED REPORT AND ASSUMED CARE AT 1900. PT IS MED SURG SO NOT ON INDUSTRIAL SERVICER. VITAL SIGNS ARE STABLE. PT IS BED REST OR MAX ASSIST. PT HAS SOME ABD PAIN AND LEG PAIN AND PRN PAIN MEDS GIVEN ORDERED. ASSESSMENT COMPLETED DISCUSSED PLAN OF CARE WITH SPOUSE AND SHE UNDERSTANDS. BED LOCKED, ALARM ON AND CALL LIGHT WITHIN REACH. FALL PRECAUTIONS IN PLACE. HOURLY ROUNDING DONE AND ALL NEEDS MET. NURSING WILL CONTINUE TO MONITOR.
[2018-08-19 07:30] VITALS: BP 113/67
--- NOTE | 2018-08-19 08:05 | CON ---
[address] [address] CONSULTATION Name: SAE LUIS Room: [address] ADM IN M.R.#: [id number] Admission: 08/17/18 Attend Phys: Stephy Saunders Discharge: Date of : 42 Report #: [id number] THIS REPORT FOR: //name// CC: Iker Johns LOCATION: Room 223. HISTORY OF PRESENT ILLNESS: This is a 77-year-old gentleman we have seen in the past, most recently several weeks ago. He is again admitted for multiple things, but also left knee pain and abdominal pain. The patient apparently on his last visit had a similar type of knee pain. We thought he might had pes anserine bursitis and pain. At that point in time, we treated him conservatively. He is back in again with continued pain. The patient has been on prescription narcotics for his pains and otherwise has rather significant history as well for other multiple comorbidities. He does have a significant medical history of cirrhosis of the liver with ascites. He had chronic chest pain. He does have atherosclerotic vascular disease with associated abdominal aortic aneurysm. He does have abdominal pain, hepatic encephalopathy, splenomegaly. He does have chronic intractable pain and currently has some left leg edema as well. He does have pancreatitis, pleural effusions, some thrombocytopenia and he is really bed to chair transfer only and UTI. The patient has allergies in the past. They are multiple. HE DOES HAVE SOME FOSAMAX ALLERGY WITH GI UPSET; LEVAQUIN, HE HAS SOME CHEST PAIN; HE HAS ACTONEL, GI UPSET; AUGMENTIN, HAS DIARRHEA; VICODIN, BREATHING DIFFICULTY; CEFEPIME, HE GETS A RASH; WARFARIN ALLERGY; CLINDAMYCIN ALLERGY. Currently, he does have a pulse of 92, respirations 20, and 122/56 BP. His medical list is reviewed as well as his lab data. X-rays are reviewed. Scans are reviewed as well. Currently, a left knee x-ray was just recently done while we were in the room examining this gentleman. He does complain of discomfort about the left knee region. The patient otherwise on review of symptoms, musculoskeletal, he has discomfort in the left knee. Denies any really right knee pain or discomfort. He is pretty much in wheelchair and bedbound. PAST MEDICAL HISTORY: Includes also the stroke in 2000. He does have the liver disease history with EGD and varices. He has currently the pleural effusions as stated, splenomegaly. REVIEW OF SYSTEMS: GENERAL: No fevers or chills. He has no significant visual changes. CARDIOVASCULAR: No chest pain. RESPIRATORY: No shortness of breath. GASTROINTESTINAL: No current nausea or vomiting. SKIN: No rashes or lesions of any major degrees. PHYSICAL EXAMINATION: GENERAL: Otherwise, he is a pleasant 77-year-[place] [address] CONSULTATION Name: SAE LUIS Room: [address] IN [facility]#: [id number] Admission: 08/17/18 Attend Phys: Stephy Saunders Discharge: Date of : 42 Report #: [id number] HEENT: He is normocephalic. He is atraumatic. The patient's trachea is definitely midline. He can converse. EXTREMITIES: As far as edema goes to the extremities, his left lower extremities have some edema all the way from the thigh down to the lower ankle region on that left side. There is no edema on the right side on comparison. Upper extremities do not have any edema. He has nice warm skin to all extremities. There is definitely musculoskeletally contraction of this left knee region and the right knee region with hips flexed and knees flexed as well. ABDOMEN: The patient does have a soft abdomen. NEUROLOGIC: The patient, otherwise, neurologically alert again and speaks adequately. His x-ray in the knee taken today, although we have a contracted AP view. There are no gross bony lesions that are isolated anywhere in this leg. As far as the bony architecture of the knee goes, the patella is still in appropriate position as well, seen on the lateral view. The patient does demonstrate no palpable effusion. There is no palpable Little cyst that we can determine on exam today. He does have a little discomfort with hip range of motion. Tenderness, he says that when we do a range of motion, tenderness is slightly tender as well with the CT abdomen showing some arthritic changes about that left hip region also. His ankle is examined, does have dorsiflexion and plantarflexion motion causes some mild discomfort as well. The patient's right leg on comparison also has a contracture, but is not painful. IMPRESSION: 1. Overall, consistent with orthopedics for left knee pain with underlying chronic contractures of the hip and the knee on both the right and the left leg regions. 2. He does have the current history of bilateral pleural effusions and portal hypertension with severe cirrhosis and some end-stage kidney disease, cerebrovascular accident history and currently lymphedema to the lower extremity on the left side. PLAN: 1. For the edema in the leg, really orthopedically would have to offer him is to put him in some time the compression MINA hose, etc. on that extremity on the left side. 2. Possibility has some lymphedema problem proximally in the abdomen region that is causing this left side to have more edema, that is a possibility, although I did not see any of that read out by Radiology on the scans. I would treat him conservatively for his pain. Currently, medications have been given, but add Lidoderm patch to the knee region as well. Might give him some localized relief anyway. The patient I do not think would benefit necessarily from an injection anywhere across the knee region, otherwise, [place] [address] CONSULTATION Name: LUISSAE Guero Room: [address]#: [id number] Admission: 08/17/18 Attend Phys: Stephy Saunders Discharge: Date of : 42 Report #: [id number] doing an arthrocentesis for him. We will be available if needed and it is our pleasure seeing and taking care of this gentleman today. <ELECTRONICALLY SIGNED> By: Arnel Christy DO 08/19/18 0805 1536 [id number] Christy DO /nt
[2018-08-19 14:46] VITALS: BP 112/54
--- NOTE | 2018-08-19 15:13 | NUR ---
PT TRANSFERRED TO UNIT, I AGREE WITH MORNING ASSESSMENT. FALL RISK PRECAUTIONS IN PLACE. HOURLY ROUNDING COMPLETED. WILL CONTINUE TO MONITOR.
[2018-08-19 17:14] VITALS: BP 124/72
--- NOTE | 2018-08-19 17:18 | NUR ---
PT REMAINED ALERT AND ORIENTED. PT WAS CHOKING WITH MEDS, SUCTION PROVIDED. PT IS NOW CALM AND BREATHING APPROPRIATELY. FALL RISK PRECAUTIONS IN PLACE. HOURLY ROUNDING COMPLETED. WILL CONTINUE TO MONITOR.
[2018-08-19 20:00] VITALS: BP 107/56
--- NOTE | 2018-08-20 04:49 | NUR ---
ASSUMED PATIENT CARE AT 1900. PATIENT ALERT AND ORIENTED TIMES FOR. HARD TO UNDERSTAND R/T DYSPHAGIA. SEVERELY CONTRACTED. CUTTER OPERATOR ASBESTOS SHINGLE AND HOURLY ROUNDING COMPLETED CHARTED
[2018-08-20 07:30] VITALS: BP 119/61
--- NOTE | 2018-08-20 15:30 | NUR ---
PT.SLEEPING. CALLED TO SPEAK WITH ,RYAN, ABOUT DISCHARGE PLANNING. DRS ARE RECCOMMENDING SNF. LEFT VM FOR RYAN TO CALL CM [phone] AND LEAVE A MESSAGE. ONE OF THE CM WOULD CALL HER BACK.
[2018-08-20 16:29] VITALS: BP 121/58
--- NOTE | 2018-08-20 16:50 | NUR ---
ASSUMED CARE OF PATIENT AT APPROX 0730. ALERT AND OREINTED. VSS ON 2 LITERS 02. PATIENT VERY HARD TO UNDERSTAND DUE TO DYSPHAGIA. DIET OF PUREED FOODS AND HONEY THICKENED LIQUIDS. PAIN MANAGED WITH FLEXERIL, VOLTAREN GEL AND LIDOCAINE PATCH. PATIENT ARRIVED TO THE UNIT AT APPROX 1600 AND REQUESTED PAIN MEDICATION FOR PATIENT, PATIENT OBSERVED TO BE HAVING DISCOMFORT, MEDICATION GIVEN. VOIDING PER URINAL, INCONTINENT OF BOWEL. PATIENTS LEFT SIDE IS VERY CONTRACTED AND LIMITED ABILITY TO MOVE. IN BED THROUGHOUT SHIFT. TURNS COMPLETED. HOURLY ROUNDS COMPLETED. FALL PRECAUTIONS IN PLACE. CALL LIGHT WITHIN REACH. NURSING WILL CONTINUE TO MONITOR.
[2018-08-20 21:40] VITALS: BP 111/53
--- NOTE | 2018-08-21 04:41 | NUR ---
PT REMAINED ALERT AND ORIENTED. VITALS STABLE. PT ON 2L OF O2 BY NC. ALL MEDS CRUSHED AND GIVEN WITH APPLESAUCE. REFUSED DICLOFENAC GEL AND SHE MENTIONED THAT IT IS NOT GOOD FOR PT SINCE PT HAS KIDNEY, LIVER DISEASE. HOURLY ROUNDING, Q2 TURN COMPLETED. WILL CONTINUE TO MONITOR.
[2018-08-21 05:07] LABS: CALCIUM 8.3 mg/dL (8.5-10.1); CREATININE 1.6 mg/dL (0.6-1.3); MAGNESIUM 1.7 mg/dL (1.8-2.4); POTASSIUM 4.3 mmol/L (3.5-5.1)
--- NOTE | 2018-08-21 10:31 | NUR ---
CM left w/pt's spouse, Kelle, to discuss SNF recommendation/options.
--- NOTE | 2018-08-21 11:07 | NUR ---
pt , Kelle, return CM call regarding SNF. Kelle refused SNF, states pt has poor hx w/SNF states 'he doesnt receive good care at those places.' Pt spouse also expresses concerns about medications and care. Pt spouse request a call from the hospitalist. CM notified Dr. Uribe of spouse request and concerns. Pt spouse will consider HH @ time of d/c. CM will remain available to assist & follow as needed.
--- NOTE | 2018-08-21 17:19 | NUR ---
PATIENT TRANSFERRED FROM [facility] TO ROOM 309. REPORT RECEIVED FROM SAMANTHA ALONSO. PATIENT DROWSY. DID WAKE UP FOR A DRINK OF WATER BUT REFUSED HIS LACTULOSE. LIDODERM PATCH REPLACED TO LEFT KNEE. MRI TO BE DONE ON FRIDAY. [address] HERE THIS EVENING AND SPOKE WITH DR. FERRARO. UPDATE GIVEN. BED ALARM ON FOR PATIENT SAFETY.
[2018-08-22] VITALS: BP 134/79
--- NOTE | 2018-08-22 06:17 | NUR ---
PATIENT SLEPT PART OF THE NIGHT. PATIENT CONTINUES TO HAVE LEFT KNEE PAIN. WARM BLANKETS WERE APPLIED A FEW TIMES THIS SHIFT AND TRAMDOL WAS GIVEN FOR PAIN WITH SOME RELIEF. PATIENT HAS REMAINED INCONTINENT AND MORE CONFUSED THAN NORMAL. WILL CONTINUE TO MONITOR.
[2018-08-22 08:10] VITALS: BP 131/50
[2018-08-22 15:30] VITALS: BP 132/79
--- NOTE | 2018-08-22 19:04 | NUR ---
PATIENT HAS BEEN A/O TO PERSON THIS SHIFT, CONFUSED AND FORGETFUL. PATIENT WITH LIDOCAINE PATCH TO LEFT KNEE. PATIENT HAS NOT USED ANY PO PAIN MEDS. PATIENT FED MEALS, APPETITE POOR. MEDS CRUSHED IN APPLESAUCE. PATIENT GIVEN THICKENED LIQUIDS THROUGHOUT THE SHIFT. NO IV. PATIENT'S UPDATED ON ALL MEDS AND PLAN OF CARE. PATIENT INCONTINENT OF URINE THIS SHIFT, DERRICK-CARE PROVIDED AND BARRIER CREAM APPLIED. FALL PRECAUTIONS IN PLACE. HOURLY ROUNDING COMPLETED. CALL LIGHT WITHIN REACH. WILL CONTINUE WITH PLAN OF CARE.
[2018-08-23] VITALS: BP 130/67
--- NOTE | 2018-08-23 06:51 | NUR ---
PATIENT REMAINED VERY DROSWY MOST OF THE NIGHT. WOULD OPEN HIS EYES TO HIS NAME AND THEN FALL BACK ASLEEP. NIGHT MEDS WERE HELD. THIS MORNING PATIENT IS MUCH MORE ALERT AND AWAKE TOOK HIS MORNING MEDS. PATIENT WAS ONLY GIVEN SCHEDULED PAIN MEDS. WILL CONTINUE TO MONITOR.
[2018-08-23 08:20] VITALS: BP 103/48
[2018-08-23 14:01] LABS: HEMATOCRIT 26.1 % (42.0-52.0); HEMOGLOBIN 8.9 gm/dL (14.0-18.0); MCHC 34.2 g/dL (28.0-37.0); MCV 90.6 fL (80.0-100.0); MPV 8.2 fl. (7.2-11.1); NUCLEATED RBCS 0 /100WBC; PLATELET COUNT* 88 thou/uL (150-400); RBC 2.88 mil/uL (4.50-6.00); RDW-CV 16.8 % (10.5-14.5); WBC 8.9 thou/uL (4.0-11.0)
[2018-08-23 14:08] LABS: CALCIUM 8.1 mg/dL (8.5-10.1); CREATININE 1.7 mg/dL (0.6-1.3); POTASSIUM 3.9 mmol/L (3.5-5.1)
[2018-08-23 14:34] LABS: ABSOLUTE BASOPHILS 0.1 thou/uL (0.0-0.2); ABSOLUTE LYMPHOCYTES 0.1 thou/uL (0.8-5.3); ABSOLUTE MONOCYTES 0.3 thou/uL (0.0-1.2); ABSOLUTE NEUTROPHILS 8.5 thou/uL (1.6-8.1); PLATELET ESTIMATE DECREASED
[2018-08-23 14:35] LABS: ANISOCYTOSIS Occasional
[2018-08-23 16:00] VITALS: BP 134/65
[2018-08-23 17:29] LABS: URINE BLOOD 3+ (Negative); URINE CLARITY CLEAR; URINE COLOR YELLOW; URINE GLUCOSE-RANDOM NEGATIVE (Negative); URINE KETONES 1+ (Negative); URINE LEUKOCYTES-REFLEX NEGATIVE (Negative); URINE NITRITE-REFLEX NEGATIVE (Negative); URINE PROTEIN NEGATIVE (Negative); URINE SPECIFIC GRAVITY 1.015 (1.005-1.030); URINE UROBILINOGEN 0.2 E.U./dl (0.2-1.0)
[2018-08-23 17:35] LABS: ICTOTEST (BILI CONFIRMATORY) Negative (Negative); URINE BILIRUBIN 1+ (Negative)
[2018-08-23 17:43] LABS: SQUAMOUS NONE SEEN /LPF (0-3)
[2018-08-23 17:44] LABS: BACTERIA-REFLEX 1-9 Few /HPF (None Seen); MUCUS 0-3 Light strn/LPF (None Seen); URINE RBC 3-10 Few /HPF (0-2); URINE WBC-REFLEX 0-5 Rare /HPF (0-5)
[2018-08-23 17:45] LABS: CRYSTALS None Seen /LPF (None Seen); HYALINE CASTS >10 Many /LPF (None Seen)
--- NOTE | 2018-08-23 19:25 | NUR ---
PATIENT HAS BEEN MORE AWAKE AND ALERT THIS SHIFT. ORIENTED TO PERSON, AND PLACE. NO IV. PATIENT DENIED ANY PAIN TO LEFT KNEE. LIDOCAINE PATCH IN PLACE THIS SHIFT. PATIENT TURNED EVERY 2 HOURS, BOGGY HEELS NOTED, BLANCHABLE AND ELEVATED WHEN ALLOWED. PATIENT DID DANGLE ON SIDE OF BED WITH ASSIST OF 2. PATIENT WITH IMPROVED APPETITE THIS SHIFT, ASSISTED WITH MEALS. TAKES PILLS CRUSHED IN APPLESAUCE. SLEPT IN NAPS. LABS DRAWN THIS SHIFT. PATIENT USED URINAL X 1 THIS SHIFT, INCONTINENT THROUGHOUT THE SHIFT. DERRICK-CARE PROVIDED. PATIENT'S UPDATED ON PLAN OF CARE. FALL PRECAUTIONS IN PLACE. HOULRY ROUNDING COMPLETED. CALL LIGHT WITHIN REACH. WILL CONTINUE WITH PLAN OF CARE.
[2018-08-23 22:06] VITALS: BP 112/43
--- NOTE | 2018-08-24 05:45 | NUR ---
PATIENT WAS UP MOST OF THE NIGHT CALLING ON THE CALL LIGHT FREQUENTLY WATER A DRINK. PATIENT DRANK SEVERAL HONEY THICKENED DRINKS TONIGHT. PATIENT HAS CONTINUE TO BE INCONTINENT FOR THE MOST PART AND WAS TURNED AND CHANGED SEVERAL TIMES. PATIENT IS SUPPPOSED TO HAVE AN MRI TODAY. WILL CONTINUE TO MONITOR.
[2018-08-24 07:40] VITALS: BP 114/53
--- NOTE | 2018-08-24 12:48 | NUR ---
Nutrition: Pt seen for LOS. Pt wasn't able to have full conversation, seemed very sleepy. Physician indicated severe PCM - defer DX. Albumin 1.7. Pureed, thickened liquids diet. Wt: 127#. Debility, cirrhosis w/ portal HTN, bilat pleural effusion. Noted opened thicked juices on table - pt apparently consuming them. Consider mild risk at this time. No nutrition interventions needed at this time.
--- NOTE | 2018-08-24 15:15 | NUR ---
PT. NOT SEEN DUE TO OT SCHEDULE CONFLICT
[2018-08-24 17:13] VITALS: BP 111/53
--- NOTE | 2018-08-24 17:20 | NUR ---
PATIENT HAS BEEN ALERT TODAY, PLEASANT. VITAL SIGNS ARE STABLE ON 2 LITERS OF OXYGEN. PATIENT HAS HAD NO COMPLAINTS TODAY, HAS HAD MANY. RADIO TELEVISION TECHNICAL DIRECTOR AND PATIENT ADVOCATE HAVE BEEN INVOLVED. NO COMPLAINTS OF PAIN PER PATIENT. TOLERATED DIET AND THICKENED WELL TODAY. TURNS DONE EVERY TWO HOURS AND MEALS FED TO PATIENT, SWALLOED PILLS FINE TODAY WHOLE IN APPLE SAUCE. CALL LIGHT IS IN REACH, BED ALARM IS ON. WILL CONTINUE TO MONITOR.
[2018-08-25] VITALS: BP 130/66
--- NOTE | 2018-08-25 06:44 | NUR ---
PATIENT AWAKE ALL NIGHT DISABILITY COUNSELOR LIGHT WITH NEEDS. PT REPOSITIONED APPROX EVERY 30 MIN. PT GIVEN TRAMADOL X2 FOR PAIN IN KNEE. PT REMOVED LIDODERM PATCH AND IT WAS DISPOSED OF. PT HAS CRUSHED MEDS IN APPLESAUCE AND HONEY THICKENED LIQUIDS. PT ON O2 @ 2LITERS. FREQUENTLY USED ITEMS AND CALL LIGHT WITHIN REACH. SIDERAILS UPX4. FREQUENT OBSERVATIONS MADE. WILL CONTINUE TO MONITOR.
[2018-08-25 08:00] VITALS: BP 116/57
--- NOTE | 2018-08-25 14:58 | NUR ---
Nutrition: follow up note. Spoke with today. She is concerned with pt's po intake being too little and him being too weak for disch. She is also concerned about his diet order. She wants pureed diet; she stated she uses ground/soft at home. She stated the thickener we use is too "globby," and she wants to use a "gel thickener" instead (which we do not carry). Pt-experience- coordinator is on the case. Pt is a feeder and RNs are aware - there are multiple signs hung in room alerting of this. Will follow up per protocol.
[2018-08-25 15:35] VITALS: BP 112/66
--- NOTE | 2018-08-25 15:55 | NUR ---
LARRY ATTEMPTED TO CALL PTS X2 ON BOTH HOME AND CELL PHONE, ONE AND 2 HRS AFTER LEFT HER VM. SHE DID NOT ANSWER. CALLED CM AT THIS TIME AND SAID SHE WAS IN HER HUSBANDS ROOM AT THIS TIME. WENT TO DISCUSS HIS DISCHARGE FOR TODAY TO HOME WITH HH OR SNF. SHE SAID SHE HAS BEEN TELLING EVERYONE THAT SHE WILL NOT HAVE HIM GO TO SNF. SHE DOES NOT FEEL HE IS READY TO GO HOME. HIS LEG IS NO BETTER, HE IS NOT EATING, HE IS TOO SLEEPY. EXPLAINED SOME OF HIS MEDICATIONS CAN MAKE HIM SLEEPY. WITH HIS CKD AND LIVER DISEASE, IT TAKES LONGER TO GET OUT OF SYSTEM. TOLD HER AND THERAPISTS FEEL PT.'SCONTRACTURES ARE CHRONIC. XRAYS WERE NEG. ORTHOPEDICS HAD SEEN HIM ALSO. SHE SAID HE NEEDS HIS MEDICATIONS FINE TUNED. HE WAS NOT THIS SLEEPY WHEN HE CAME IN. CONTINUES TO REFUSE DISCHARGE. HAD HER SIGN MEDICARE IM FORM AND GAVE HER COPY AND EXPLAINED HOW TO APPEAL HIS DISCHARGE. INSTRUCTIONS ARE ON 2ND PG OF FORM. SHE SAID SHE WILL CALL THE NUMBER ON FORM. SAMANTHA GIRALDO INFORMED. SHE WILL LET KNOW.
--- NOTE | 2018-08-25 16:59 | NUR ---
PATIENT ASSISTED WITH MORNING MEAL BUT REFUSED LUNCH. PATIENT SLEEPING OFF AND ON THIS SHIFT. PATIENTS REFUSING TO TAKEN PATIENT HOME OR HAVE HIM PLACED IN SNF, STATED "HIS MEDICATIONS NEED SORTED OUT BEFORE HE CAN GO HOME." DR. JJ NOTIFIED AND ORDERS FOR CT OF HEAD, NEURO CONS AND NEW MEDS TO BE STARTED TOMORROW. PATIENT REFUSING MOST OF SHIFT TO TURN. INCONTINENT OF URINE. 2L NC REMAINS IN PLACE.
--- NOTE | 2018-08-25 19:33 | NUR ---
RECEIVED PHONE CALL FROM [facility], PT HAS FILED [employer] GRIEVANCE REGARDING DISCHARGE PLAN FOR 08/25/18, INFORMATION FAXED APON RECEIVAL OF DISCLOSURE REQUEST FAX # [phone]
[2018-08-26] VITALS: BP 120/57
--- NOTE | 2018-08-26 05:07 | NUR ---
PATIENT SLEPT WELL DURING THIS SHIFT. PT TURNED Q2H PER PROTOCAL. PT INCONTINENT OF URINE. URINE IS YELLOW. PT GIVEN TRAMADOL X1 AT HS. MEDS CRUSHED IN APPLESAUCE OR PUDDING. PT ON O2 @ 2 LITERS. FREQUENTLY USED ITEMS AND CALL LIGHT WITHIN REACH. SIDERAILS UPX4. WILL CONTINUE TO MONITOR.
[2018-08-26 07:50] VITALS: BP 118/57
--- NOTE | 2018-08-26 12:00 | NUR ---
LEFT DETAILED MESSAGE OF DISCHARGE LETTER IN ROOM WITH PT. AND EXPLAINED TO HIM. NOT HERE AT THIS TIME. [facility] HAS 24 HRS TO MAKE DECISION ON DISCHARGE FROM WHEN CHART COPIES FAXED IN (08/25 1932). THEY WILL NOTIFY AND THEN CM. IF THEY DECIDE PT.IS READY FOR DISCHARGE, PT.HAS UNTIL NOON THE NEXT DAY TO DISCHARGE WITHOUT BEING RESPONSIBLE FOR ANY FINANCIAL CHARGES.
[2018-08-26 15:45] VITALS: BP 125/62; BP 128/60
--- NOTE | 2018-08-26 17:51 | NUR ---
PATIENT MORE ALERT THIS SHIFT, NO FREQUENT NAPPING NOTED. PATIENT STARTED ON SYNTHROID THIS AM FOR ELEVATED TSH. PATIENT HAD IMPROVED APPETITE THIS SHIFT, ASSISTED WITH MEALS. TURNED Q2. PATIENT USING URINAL BUT WAS STILL INCONTINENT AT TIMES. REMAINS ON 2L NC. NO COMPLAINTS OF PAIN.
[2018-08-26 22:30] VITALS: BP 120/58
--- NOTE | 2018-08-27 05:44 | NUR ---
PATIENT SLEPT WELL DURING THIS SHIFT. PT REPOSITIONED FREQUENTLY, APPROX Q2H UNLESS REFUSED. PT GIVEN NUMEROUS SIPS OF WATER INTAKING APPROX 3/4 CUP OF HONEY THICKENED WATER. PILLS WERE CRUSHED AND PLACED IN APPLESAUCE AND PT TOOK WITH NO PROBLEMS. PT WITH ONE INCONTINENT BOWEL MOVEMENT AND NUMEROUS INCONTINENCE OF URINE. FREQUENTLY USED ITEMS AND CALL LIGHT WITHIN REACH. SIDERAILS UPX4 AND BED ALARM ON. FREQUENT OBSERVATIONS MADE. WILL CONTINUE TO MONITOR.
[2018-08-27 10:00] VITALS: BP 101/51
--- NOTE | 2018-08-27 12:00 | NUR ---
DISHA/SHARON CALLED AND STATED THEY FEEL PT.IS MEDICALLY STABLE FOR DISCHARGE. THE PT.NOW HAS UNTIL NOON ON 08/28 TO DISCHARGE. AFTER THAT HE WILL BE RESPONSIBLE FOR HIS BILL FROM NOON ON 08/28. DISHA STATED HE ALSO CALLED PT.S TO INFORM. HERE NOW. LARRY AND MELISSA,PT.REP WENT IN TO TALK WITH PT.AND . SHE UNDERSTANDS ALL OF THE ABOVE. SHE SAID SHE WILL TAKE HIM HOME WITH HH. SHE CHOSE A OR [facility]. SPOKE WITH THONG/LIDIA. SHE SAID THEY WILL ACCEPT PT.TO SERVICE. REQUESTED LASHAE SALEEM/P.T. TOLD THIS TO THONG. FAXED REFERRAL TO [phone]. TOLD HER HE WILL NOT DISCHARGE UNTIL TOMORROW. ALSO REQUESTING A SHITAL LIFT. WROTE PRESCRIPTION FOR THIS. DISCUSSED WC VAN VS.AMBULANCE WITH . SHE WILL THINK ABOUT IT. SHE SAID [facility] COM[facility] TO [facility] PT[facility]THIS AFTERNOON TO SEE IF HE WOULD QUALIFY FOR A PAID [facility]OUGH [facility]. LARRY FAXED PRESCRIPTION FOR SHITAL LIFT,H&P,P.T.NOTES TO AUGUSTO/NOEL.
--- NOTE | 2018-08-27 17:13 | NUR ---
PATIENT IS ALERT TODAY ORIENTED TIMES 2 TO 3. VITAL SIGNS STABLE ON 2 LITERS OF OXYGEN. APPETITE HAS BEEN OKAY, PATIENT IS SWALLOWING PUREED AND THICKENED LIQUIDS FINE. SOME PAIN TODAY IN KNEE TYLENOL GIVEN AND RELIEF OBTAINED. PATIENT IS BEDREST, FREQUENT TURNS AND IS TO BE FED AT ALL MEALS. PATIENT IS BEING MOVED TO FIRST FLOOR, REPORT GIVEN TO NURSE TAKING OVER CARE OF PATIENT. PATIENT LEFT VIA BED TO ROOM 105.
[2018-08-27 20:00] VITALS: BP 137/73
--- NOTE | 2018-08-28 05:48 | NUR ---
PATIENT SLEPT VERY LITTLE THIS SHIFT. PATIENT HAS BEEN VERY RESTLESS AND CONFUSED THIS SHIFT TAKING OFF HIS CLOTHES, AND YELLING OUT FOR HELP. PATIENT WAS TURNED AND CHANGED ABOUT EVERY TWO HOURS. WILL CONTINUE TO MONITOR.
[2018-08-28 07:50] VITALS: BP 142/84
[2018-08-28 09:08] LABS: HEMATOCRIT 28.6 % (42.0-52.0); HEMOGLOBIN 9.7 gm/dL (14.0-18.0); MCH 30.8 pg (26.0-34.0); MCV 90.6 fL (80.0-100.0); MPV 8.6 fl. (7.2-11.1); RBC 3.16 mil/uL (4.50-6.00); RDW-CV 16.6 % (10.5-14.5); WBC 9.6 thou/uL (4.0-11.0)
[2018-08-28 09:25] LABS: CALCIUM 8.5 mg/dL (8.5-10.1); CREATININE 1.6 mg/dL (0.6-1.3); TOTAL BILIRUBIN 1.8 mg/dL (<0.1-1.0); TOTAL PROTEIN 7.2 g/dL (6.4-8.2)
[2018-08-28 09:34] LABS: INR 1.3; PROTIME 13.8 Seconds (9.20-11.50)
[2018-08-28 09:45] VITALS: BP 137/73
--- NOTE | 2018-08-28 10:00 | NUR ---
FAXED REFERRAL TO [facility] HAD LEFT MESSAGE LATE LAST [facility] THAT THEY COULD NOT ACCEPT PT.TO SERVICE THEY HAD DO NOT READMIT NOTE ON HIM FROM THE LAST TIME THEY HAD HIM DUE TO 'S NON COMPLIANCE. [facility] DID ACCEPT PT. FAXED ORDERS TO THEM [phone]. INFORMATION PUT ON DISCHARGE INSTRUCTIONS. LARRY SPOKE WITH AUGUSTO/NOEL. SHE SAID SHITAL LIFT WAS SCHEDULED TO BE DELIVERED TO PT.S HOME THIS AFTERNOON. INFORMED OF ABOVE. SHE SAID YES SHE HAD HEARD FROM NOEL. SHE HAD NO FURTHER QUESTIONS FROM LARRY.
[2018-08-28] MEDS ORDERED: SYNTHROID50 MCG PO (11:20)
[2018-08-28] MEDS ORDERED: LIDOCAINE1 EACH TOP (11:21)
[2018-08-28] MEDS ORDERED: PROTONIX40 M1 PO (11:22)
[2018-08-28 11:46] LABS: URINE BILIRUBIN NEGATIVE (Negative); URINE BLOOD 3+ (Negative); URINE CLARITY CLEAR; URINE COLOR YELLOW; URINE GLUCOSE-RANDOM NEGATIVE (Negative); URINE KETONES 1+ (Negative); URINE LEUKOCYTES-REFLEX NEGATIVE (Negative); URINE NITRITE-REFLEX NEGATIVE (Negative); URINE PROTEIN NEGATIVE (Negative)
[2018-08-28 12:05] LABS: MUCUS 4-6 Moderate strn/LPF (None Seen); SQUAMOUS NONE SEEN /LPF (0-3)
[2018-08-28 12:06] LABS: HYALINE CASTS >10 Many /LPF (None Seen); URINE WBC-REFLEX 0-5 Rare /HPF (0-5)
[2018-08-28 12:07] LABS: BACTERIA-REFLEX None Seen /HPF (None Seen); CRYSTALS None Seen /LPF (None Seen)
--- NOTE | 2018-08-28 12:11 | NUR ---
JET WORKER SPOKE TO THE PATIENT'S SPOUSE TO DISCUSS DISCHARGE PLANNING NEEDS AND THE PATIENT'S D/C HOME TODAY. PATIENT'S SPOUSE REQUEST TO SPEAK TO DR FERRARO. DR FERRARO SPOKE TO THE PATIENT'S SPOUSE OVER THE PHONE. D/C SAFE DEPOSIT CLERK CONFIRMED WITH THE PATIENT'S SPOUSE PLANS TO TRANSPORT THE PATIENT HOME BY AMBULANCE. D/C SAFE DEPOSIT CLERK ARRANGED TRANSPORT WITH [facility] FOR 1200, AND FAXED THE PATIENT TRANSFER FORM TO [facility]. D/C SAFE DEPOSIT CLERK INFORMED THE RN IN-CHARGE OF THE PATIENT OF THE PATIENT'S TIME OF TRANSPORT. CM WILL REMAIN AVIALABLE TO ASSIST AND FOLLOW NEEDED.
--- NOTE | 2018-08-28 12:35 | NUR ---
PATIENT DISCHARGED TO HOME WITH HOME HEALTH. DISCHARGE PAPERS REVIEWED AND SIGNED WITH . PRESCRIPTIONS AND INFORMATION SHEETS GIVEN TO PATIENT'S . PATIENT AND FAMILY DENY ANY FURTHER NEEDS. PATIENT TAKEN BY AMBULANCE TO HOME.
== END 2018-08-28 12:35 | disposition home health service (06) | DRG 432 ==
LOC: M.ERS 19:36 → M.TBA-ER 23:07 → M.2W 23:07 → M.ORTHSURG 08-19 14:58 → M.3W 08-21 16:09 → M.ORTHSURG 08-27 17:17
PROVIDERS: Internal Medicine; Physician Assistant; ADMIT Internal Medicine
DX: K74.69 Other cirrhosis of liver (principal); E43 Unspecified severe protein-calorie malnutrition; J90 Pleural effusion, not elsewhere classified; K76.6 Portal hypertension; Z68.1 Body mass index [BMI] 19.9 or less, adult; N18.3 Chronic kidney disease, stage 3 (moderate); M24.551 Contracture, right hip; M24.552 Contracture, left hip; M24.562 Contracture, left knee; M24.561 Contracture, right knee; Z66 Do not resuscitate; Z88.6 Allergy status to analgesic agent; Z88.1 Allergy status to other antibiotic agents; Z88.8 Allergy status to other drugs, medicaments and biological substances; Z86.73 Personal history of transient ischemic attack (TIA), and cerebral infarction without residual deficits; Z95.828 Presence of other vascular implants and grafts

== ENCOUNTER → 2018-10-14 | Outpatient (CLI) | payer MEDICARE, OTHER, MEDICAID ==
[~2018-10-14] MED LIST changes: +LIDOCAINE1 EACH TOP; +SYNTHROID50 MCG PO
[2018-10-14 13:58] LABS: HEMATOCRIT 25.5 % (42.0-52.0); HEMOGLOBIN 8.7 gm/dL (14.0-18.0); MCH 30.2 pg (26.0-34.0); MCHC 34.1 g/dL (28.0-37.0); MCV 88.4 fL (80.0-100.0); MPV 7.7 fl. (7.2-11.1); RBC 2.88 mil/uL (4.50-6.00); RDW-CV 15.5 % (10.5-14.5); WBC 4.9 thou/uL (4.0-11.0)
[2018-10-14 14:03] LABS: CALCIUM 8.4 mg/dL (8.5-10.1); CREATININE 1.5 mg/dL (0.6-1.3); POTASSIUM 4.2 mmol/L (3.5-5.1)
[2018-10-14 14:04] LABS: INR 1.2; PROTIME 12.7 Seconds (9.20-11.50)
[2018-10-14 14:08] LABS: ALBUMIN 1.7 g/dL (3.4-5.0); TOTAL BILIRUBIN 0.7 mg/dL (<0.1-1.0)
[2018-10-14 15:45] VITALS: BP 132/75
== END ==
LOC: M.LAB 12:30 → M.ULTRA 13:00 → M.LAB 13:02 → M.INFUS 15:52
PROVIDERS: Internal Medicine Gastroenterology
DX: K74.60 Unspecified cirrhosis of liver (principal); R18.8 Other ascites

== ENCOUNTER → 2018-11-06 | Outpatient (CLI) | payer MEDICARE, OTHER, MEDICAID ==
[2018-11-06 12:39] LABS: HEMATOCRIT 25.3 % (42.0-52.0); HEMOGLOBIN 8.6 gm/dL (14.0-18.0); MCH 30.3 pg (26.0-34.0); MCHC 33.8 g/dL (28.0-37.0); MCV 89.7 fL (80.0-100.0); MPV 8.4 fl. (7.2-11.1); RBC 2.82 mil/uL (4.50-6.00); RDW-CV 16.9 % (10.5-14.5); WBC 4.6 thou/uL (4.0-11.0)
[2018-11-06 12:48] LABS: INR 1.3; PROTIME 12.8 Seconds (9.20-11.50)
[2018-11-06 12:53] LABS: ALBUMIN 1.9 g/dL (3.4-5.0); CREATININE 1.6 mg/dL (0.6-1.3); POTASSIUM 3.9 mmol/L (3.5-5.1); TOTAL BILIRUBIN 0.8 mg/dL (<0.1-1.0); TOTAL PROTEIN 7.1 g/dL (6.4-8.2)
[2018-11-06 14:15] VITALS: BP 122/74
--- NOTE | 2018-11-06 16:11 | NUR ---
ARRIVED PER WHEELCHAIR FROM ULTRASOUND. CARGO BROKER REPORTS 6.5 LITERS FLUID REMOVED FROM ABD. PER STANDING ORDER PT TO RECIEVE 50G OF ALBUMIN, DIFFICULT IV START AND PT SKIN VERY FRAGIL WITH MULTIPLE SKIN TEARS NOTED IN VERIOUS STAGES OF HEALING. DENIES ADVERS REACTION TO MULTIPLE INFUSIONS OF SAME. INFUSION COMPLETED AND TOLERATED WELL. PT AND DENIES QUESTION OR NEED AT DISCHARGE.
== END ==
LOC: M.INFUS 05:36 → M.LAB 05:36 → M.ULTRA 13:00
PROVIDERS: Nurse Practitioner Adult Health
DX: K74.60 Unspecified cirrhosis of liver (principal); R18.8 Other ascites

== ENCOUNTER → 2018-11-27 | Outpatient (CLI) | payer MEDICARE, OTHER, MEDICAID ==
[2018-11-27 12:54] LABS: HEMATOCRIT 23.5 % (42.0-52.0); HEMOGLOBIN 7.9 gm/dL (14.0-18.0); MCH 30.7 pg (26.0-34.0); MCHC 33.6 g/dL (28.0-37.0); MCV 91.5 fL (80.0-100.0); MPV 8.3 fl. (7.2-11.1); RBC 2.57 mil/uL (4.50-6.00); RDW-CV 16.6 % (10.5-14.5); WBC 3.8 thou/uL (4.0-11.0)
[2018-11-27 13:03] LABS: INR 1.3; PROTIME 13.2 Seconds (9.20-11.50)
[2018-11-27 13:07] LABS: CREATININE 1.6 mg/dL (0.6-1.3); POTASSIUM 3.4 mmol/L (3.5-5.1); TOTAL BILIRUBIN 0.8 mg/dL (<0.1-1.0); TOTAL PROTEIN 6.6 g/dL (6.4-8.2)
--- NOTE | 2018-11-27 14:06 | NUR ---
PATIENT ARRIVAL TO INFUSION FROM IR POST-PARACENTESIS BY WHEELCHAIR. PATIENT LEFT IN WHEELCHAIR PER PATIENT REQUEST FOR COMFORT. HISTORY AND ORDERS REVIEWED. REASSESSMENT AND VS OBTAINED. PER IR NURSE, 5900MLS OF FLUID REMOVED DURING PARACENTESIS. ORDERS FAXED TO PHARMACY FOR ALBUMIN. PATIENT TO RECEIVE 50GMS ALBUMIN PER STANDING ORDERS PER DR. MANNING.
[2018-11-27 14:07] VITALS: BP 115/60
--- NOTE | 2018-11-27 14:25 | NUR ---
IV SPECIALIST, ZULMA, AT BEDSIDE TO INSERT 22G IV INTO RT FOREARM USING ULTRASOUND. IV ALBUMIN THEN STARTED DOCUMENTED ON EMAR. FAMILY AT BEDSIDE NOW. ORAL THICKENED LIQUIDS AND PUDDING OFFERED TO PATIENT.
[2018-11-27 15:45] VITALS: BP 111/59
--- NOTE | 2018-11-27 15:50 | NUR ---
ALBUMIN INFUSION COMPLETED. PATIENT TOLERATES WELL. VS REMAIN STABLE. IV REMOVED AND PATIENT LEAVES BY W/C TO HOME WITH FAMILY AT 1547.
== END ==
LOC: M.INFUS 07:13 → M.LAB 07:13 → M.ULTRA 13:00 → M.INFUS 14:00
PROVIDERS: Nurse Practitioner Adult Health
DX: K74.60 Unspecified cirrhosis of liver (principal); R18.8 Other ascites

== ENCOUNTER → 2019-02-11 | Outpatient (CLI) | payer MEDICARE, OTHER, MEDICAID ==
[2019-02-11 13:15] LABS: ABSOLUTE LYMPHOCYTES 0.4 thou/uL (0.8-5.3); ABSOLUTE MONOCYTES 0.6 thou/uL (0.0-1.2); ABSOLUTE NEUTROPHILS 4.4 thou/uL (1.6-8.1); BASOPHILS 0.3 %; EOSINOPHILS 0.6 %; HEMATOCRIT 22.9 % (42.0-52.0); HEMOGLOBIN 7.9 gm/dL (14.0-18.0); LYMPHOCYTES 7.9 %; MCH 31.2 pg (26.0-34.0); MCHC 34.5 g/dL (28.0-37.0); MCV 90.3 fL (80.0-100.0); MONOCYTES 10.2 %; MPV 8.4 fl. (7.2-11.1); NUCLEATED RBCS 0 /100WBC; PLATELET COUNT* 68 thou/uL (150-400); RBC 2.54 mil/uL (4.50-6.00); RDW-CV 16.3 % (10.5-14.5); WBC 5.4 thou/uL (4.0-11.0)
[2019-02-11 13:23] LABS: INR 1.3; PROTIME 13.4 Seconds (9.20-11.50)
[2019-02-11 13:32] LABS: ALBUMIN 1.7 g/dL (3.4-5.0); CALCIUM 8.1 mg/dL (8.5-10.1); CREATININE 2.2 mg/dL (0.6-1.3); POTASSIUM 4.2 mmol/L (3.5-5.1); TOTAL BILIRUBIN 0.6 mg/dL (<0.1-1.0); TOTAL PROTEIN 6.9 g/dL (6.4-8.2)
[2019-02-11 15:00] VITALS: BP 112/52
[2019-02-11 15:42] VITALS: BP 122/50
[2019-02-11 15:57] LABS: BF RBC <1000 /mm3; TOTAL CELL COUNT 44 /mm3
[2019-02-11 16:01] LABS: CLARITY CLEAR; TOTAL VOLUME 7160 ml
[2019-02-11 16:51] LABS: BF LYMPHOCYTES 24 %; BF MONOCYTES 60 %; BF POLYS 16 %; BF TISSUE 11 /100 WBC; SOURCE ASCITES
== END ==
LOC: M.ULTRA 02-10 10:00 → M.INFUS 02-10 11:00 → M.LAB 05:40 → M.ULTRA 13:00
PROVIDERS: Internal Medicine Gastroenterology
DX: K74.60 Unspecified cirrhosis of liver (principal); R18.8 Other ascites

== ENCOUNTER 2019-03-09 03:57 | Inpatient (IN) | payer MEDICARE, MEDICAID ==
[~2019-03-09] VITALS: Ht 167.6 cm; Wt 59.2 kg
[2019-03-09 03:58] VITALS: BP 146/85
[2019-03-09 04:18] LABS: BE -10.3 mmol/L (-2 to +3)
[2019-03-09 04:21] LABS: PCO2 91.2 mmHg (35.0-45.0); PO2 226.9 mmHg (75.0-100.0); pH 6.997 (7.340-7.450)
[2019-03-09 04:24] LABS: URINE BILIRUBIN NEGATIVE (Negative); URINE BLOOD 1+ (Negative); URINE CLARITY SL CLOUDY; URINE COLOR YELLOW; URINE GLUCOSE-RANDOM NEGATIVE (Negative); URINE KETONES NEGATIVE (Negative); URINE LEUKOCYTES-REFLEX 3+ (Negative); URINE NITRITE-REFLEX NEGATIVE (Negative); URINE PROTEIN NEGATIVE (Negative); URINE UROBILINOGEN 0.2 E.U./dl (0.2-1.0)
[2019-03-09 04:51] LABS: HEMATOCRIT 28.6 % (42.0-52.0); HEMOGLOBIN 9.4 gm/dL (14.0-18.0); MCH 29.9 pg (26.0-34.0); MCHC 32.7 g/dL (28.0-37.0); MCV 91.4 fL (80.0-100.0); MPV 8.6 fl. (7.2-11.1); NUCLEATED RBCS 0 /100WBC; PLATELET COUNT* 179 thou/uL (150-400); RBC 3.13 mil/uL (4.50-6.00); RDW-CV 16.9 % (10.5-14.5); WBC 17.5 thou/uL (4.0-11.0)
[2019-03-09 05:07] LABS: CALCIUM 7.9 mg/dL (8.5-10.1); CREATININE 2.3 mg/dL (0.6-1.3); POTASSIUM 4.1 mmol/L (3.5-5.1)
[2019-03-09 05:08] LABS: HYALINE CASTS 0-3 Few /LPF (None Seen); SQUAMOUS 4-10 Moderate /LPF (0-3); URINE WBC-REFLEX >25 Many /HPF (0-5)
[2019-03-09 05:09] LABS: BACTERIA-REFLEX >30 Many /HPF (None Seen); CRYSTALS None Seen /LPF (None Seen); URINE RBC 3-10 Few /HPF (0-2)
[2019-03-09 05:12] LABS: ALBUMIN 1.9 g/dL (3.4-5.0); TOTAL BILIRUBIN 0.9 mg/dL (<0.1-1.0); TOTAL PROTEIN 7.4 g/dL (6.4-8.2)
[2019-03-09 05:31] LABS: ABSOLUTE EOSINOPHILS 0.2 thou/uL (0.0-0.7); ABSOLUTE LYMPHOCYTES 0.4 thou/uL (0.8-5.3); ABSOLUTE MONOCYTES 0.9 thou/uL (0.0-1.2); ABSOLUTE NEUTROPHILS 16.1 thou/uL (1.6-8.1); ANISOCYTOSIS 1+; HYPOCHROMASIA 1+; PLATELET ESTIMATE ADEQUATE; POIKILOCYTOSIS 1+; TOXIC GRANULATION Occasional
[2019-03-09 05:43] VITALS: BP 114/68
[2019-03-09 06:15] VITALS: BP 120/70
[2019-03-09 07:04] VITALS: BP 115/51
--- NOTE | 2019-03-09 12:34 | NUR ---
SW received call regarding order for hospice and pt to be GIP status. SW spoke with nurse from [facility] and SW to fax records to [facility]. Dr Arrieta signed orders and RN CM and RN coordinated record for GIP. Family present and express agreement/family working with [facility] RN. No other known needs at this time.
--- NOTE | 2019-03-09 15:41 | EKG ---
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1940 Requested By: Artem Suh Order Number: [id number] Carlito MD: Iker Hawkins Measurements Intervals [place] Rate: 120 P: 54 IA: 144 QRS: 13 QRSD: 79 T: 159 QT: 342 QTc: 484 Interpretive Statements Sinus tachycardia Borderline low voltage, extremity leads Abnormal R-wave progression, early transition Nonspecific T abnormalities, lateral leads Borderline prolonged QT interval Compared to ECG 08/17/2018 21:09:31 T-wave abnormality now present Sinus rate has increased Electronically Signed On 03-09-2019 15:41:01 SYSTEMS MANAGEMENT CONSULTANT by Iker Hawkins [email or web address] <ELECTRONICALLY SIGNED> By: Iker Hawkins MD, FACC 03/09/19 [id number] [id number] Iker Hawkins MD, FACC /EPI
== END 2019-03-09 12:30 | disposition hospice, inpatient (51) | DRG 871 ==
LOC: M.ERS 03:57 → M.3W 05:12 → M.TBA-ER 05:12 → M.3W 05:59
PROVIDERS: Personal Emergency Response Attendant; ADMIT Internal Medicine
PROC: 5A09357 Assistance with Respiratory Ventilation, Less than 24 Consecutive Hours, Continuous Positive Airway Pressure (ICD-10-PCS; principal; 2019-03-09)
DX: A41.9 Sepsis, unspecified organism (principal); J96.02 Acute respiratory failure with hypercapnia; I50.31 Acute diastolic (congestive) heart failure; J69.0 Pneumonitis due to inhalation of food and vomit; J96.01 Acute respiratory failure with hypoxia; R18.8 Other ascites; N17.9 Acute kidney failure, unspecified; I69.354 Hemiplegia and hemiparesis following cerebral infarction affecting left non-dominant side; K72.90 Hepatic failure, unspecified without coma; Z51.5 Encounter for palliative care; N18.3 Chronic kidney disease, stage 3 (moderate); Z66 Do not resuscitate; K74.60 Unspecified cirrhosis of liver; Z88.6 Allergy status to analgesic agent; Z88.1 Allergy status to other antibiotic agents; Z88.8 Allergy status to other drugs, medicaments and biological substances; Z86.718 Personal history of other venous thrombosis and embolism; Z86.711 Personal history of pulmonary embolism; Z79.899 Other long term (current) drug therapy

== ENCOUNTER 2019-03-09 12:33 | Inpatient (IN) | payer OTHER ==
[~2019-03-09] VITALS: Ht 165.1 cm; Wt 59.0 kg
--- NOTE | 2019-03-09 13:22 | NUR ---
Nutrition: Pt is comfort care. Defer further nutrition.
--- NOTE | 2019-03-09 16:20 | NUR ---
ASSESSMENT COMPLETE. PT IS CURRENTLY ON [facility]. PT GIVEN PRN MEDICATIONS TO KEEP COMFORTABLE. PT Q2 TURN. SEE ASSESSMENT AND VITALS FOR OTHER DETAILS. CALL LIGHT WITHIN REACH, FAMILY AT BEDSIDE
[2019-03-09 17:23] VITALS: BP 102/49
--- NOTE | 2019-03-10 06:19 | NUR ---
PATIENT REMAINS SLEEPING AND PRETTY MUCH NONRESPONSIVE. PATIENT REMAINS ON COMFORT CARE. MEDS WERE GIVEN FOR COMFORT CHARTED. LOTS OF SECRETIONS WERE SUCTIONED OUT OF MOUTH. DAVIS REMAINS TO DEPENDENT DRAIN. WILL CONTINUE TO MONITOR.
[2019-03-10 07:45] VITALS: BP 115/64
--- NOTE | 2019-03-10 18:00 | NUR ---
PATIENT RESTING IN BED. PATIENT HAS BEEN NON-RESPONSIVE TODAY. PATIENT HAS APPEARED COMFORTABLE THROUGHOUT DAY AND HAS NOT REQUIRED MORPHINE. FAMILY HAS BEEN AT BEDSIDE THROUGHOUT DAY. FAMILY HAS REFUSED REPOSITIONING. WILL CONTINUE TO MONITOR.
--- NOTE | 2019-03-11 06:27 | NUR ---
PATIENT REMAINS ON COMFORT CARE. PATIENT GOT RESTLESS A COUPLE OF TIMES THIS SHIFT OPENING HIS EYES AND REACHING AT THINGS IN THE AIR. ATIVAN AND MORPHINE WERE GIVEN TWICE AT THAT TIME AND PATIENT CALMED BACK DOWN. DAVIS REMAINS TO DEPENDENT DRAIN. WILL CONTINUE TO MONITOR.
[2019-03-11 07:40] VITALS: BP 105/44
[2019-03-11 16:00] VITALS: BP 99/52
--- NOTE | 2019-03-11 17:29 | NUR ---
PATIENT RESTING IN BED. PATIENT APPEARS COMFORTABLE. PATIENT HAS BEEN NON-VERBAL. PATIENT GIVEN MORPHINE X 1 FOR RESTLESSNESS. PATIENT WASHED UP AND BEDDING CHANGED. REFUSING TURNS. PATIENT HAS PRESSURE AREA TO LEFT HIP. FAMILY AT BEDSIDE. WILL CONTINUE TO MONITOR.
[2019-03-11 20:00] VITALS: BP 95/47
--- NOTE | 2019-03-12 06:35 | NUR ---
ASSUMED CARE OF PT AFTER REPORT AT 1930. PT UNRESPONSIVE AT THE START OF THE SHIFT BUT BECAME RESPONSIVE WITH STRONG STIMULI AFTER MIDNIGHT. NONVERBAL. PT ON O2 AT 2L NC. PT REFUSED TURNS AT TIMES. COMFORT CARE RENDERED.
[2019-03-12 07:10] VITALS: BP 123/45
--- NOTE | 2019-03-12 10:42 | NUR ---
Called [facility] to discuss dc planning but no answer so SW left a detailed message with RN to return call. JUAN ANTONIO/CM to follow.
--- NOTE | 2019-03-12 17:16 | NUR ---
PATIENT AT 1315, SEE DOCUMENTATION. 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 BODY RELEASED TO [facility]. FAMILY WAS AT BEDSIDE. IV TAKEN OUT.
== END 2019-03-12 15:13 | DRG 871 ==
LOC: M.3W 12:33
PROVIDERS: ADMIT Family Medicine
DX: A41.9 Sepsis, unspecified organism (principal); J69.0 Pneumonitis due to inhalation of food and vomit; J96.02 Acute respiratory failure with hypercapnia; J96.01 Acute respiratory failure with hypoxia; I50.31 Acute diastolic (congestive) heart failure; K76.7 Hepatorenal syndrome; N17.9 Acute kidney failure, unspecified; G93.40 Encephalopathy, unspecified; K72.90 Hepatic failure, unspecified without coma; N18.3 Chronic kidney disease, stage 3 (moderate); Z51.5 Encounter for palliative care; Z88.1 Allergy status to other antibiotic agents; Z88.5 Allergy status to narcotic agent; Z88.8 Allergy status to other drugs, medicaments and biological substances; Z90.49 Acquired absence of other specified parts of digestive tract; Z79.2 Long term (current) use of antibiotics; Z79.899 Other long term (current) drug therapy; Z86.73 Personal history of transient ischemic attack (TIA), and cerebral infarction without residual deficits; Z86.711 Personal history of pulmonary embolism; Z86.718 Personal history of other venous thrombosis and embolism; Z79.01 Long term (current) use of anticoagulants